=== PATIENT | female | born 1990 | race Hispanic/Latino ===

== ENCOUNTER 2018-10-24 18:28 | Emergency (ER) | payer SELFPAY ==
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
[2018-10-24] MEDS ORDERED: METOCLOPRAMIDE 10 MG/2mL INJ ONE (20:01)
[2018-10-24] MEDS ORDERED: DEXAMETHASONE 4 MG/ML VIAL ONE (20:01)
[2018-10-24] MEDS ORDERED: NA CHLORIDE 0.9% 1,000 ML ONE (20:02)
[2018-10-24] MEDS ORDERED: ONDANSETRON 4 MG/2 ML VIAL ONE (20:02)
[2018-10-24 20:55] LABS: Urine Blood NEGATIVE (NEG); Urine Glucose NEGATIVE (NEG); Urine Protein NEGATIVE (NEG)
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
== END 2018-10-24 22:57 | disposition home or self-care (01) ==
LOC: ER 18:28
DX: S09.90XA Unspecified injury of head, initial encounter (principal); S06.0X9A Concussion with loss of consciousness of unspecified duration, initial encounter; W18.30XA Fall on same level, unspecified, initial encounter
CPT/HCPCS: 70450; 81003; 81025; 96361; 96374; 96375; 99284; J2405; J2765; J7030

== ENCOUNTER 2020-02-11 08:49 | Emergency (ER) | payer SELFPAY ==
[2020-02-11] MEDS ORDERED: FAMOTIDINE 20 MG/2 ML VIAL IV ONE (09:37)
[2020-02-11] MEDS ORDERED: METHYLPREDNISOLONE 125 MG INJ ONE (09:37)
[2020-02-11] MEDS ORDERED: CEFAZOLIN/SWI 1gm 1 GM/10 ML SYR ONE (09:37)
[2020-02-11] MEDS ORDERED: hydrOXYzine HCL 25 MG TAB ONE (09:37)
[2020-02-11 09:59] LABS: Absolute Lymphocytes (CBC) 1.7 K/uL (0.7-4.9); Basophils % 0.4 % (0-1.3); Lymphocytes % 25.8 % (15.3-44.8); MPV 8.9 fL (7.6-11.3); RBC Red Blood Cell Count 4.42 M/uL (3.86-4.86)
[2020-02-11 10:09] LABS: BUN Blood Urea Nitrogen 10 mg/dL (7-18); Bicarbonate 25 mmol/L (21-32); Glucose Level 104 mg/dL (74-106); Potassium 3.7 mmol/L (3.5-5.1); Sodium Level 142 mmol/L (136-145)
--- NOTE | 2020-02-11 11:14 | EDPHYS ---
Physician Documentation [facility] Name: Aruna Hsu Age: 29 yrs Sex: Female : 1990 Arrival Date: 02/11/2020 Time: 08:51 Bed 19 Private MD: ED Physician Mushtaq Hills HPI: 02/10 09:25 This 29 yrs old Female presents to ER via Ambulatory with complaints of Sore kdr Throat, Facial Swelling, Rash. 09:26 The patient started with a mild rash to the right side of the base of her neck. It kdr subsequently spread around to the left side of her neck as well. It is itchy but otherwise not bothersome. She also in the last two days has noticed swelling and tightness on the left side of her face that began around and under her ear and now involves the left side of her face. She has had a similar episode about seven years ago and was seen at [facility] - states that she had some sort of infection. Onset: The symptoms/episode began/occurred gradually, 1 week(s) ago. Severity of symptoms: At their worst the symptoms were mild just prior to arrival, in the emergency department the symptoms are unchanged. The patient has experienced a previous episode. The patient has not recently seen a physician. SHROUD LINE TIER: 09:01 LMP 02/11/2020 tw2 Historical: - Allergies: 09: NKA; tw2 - Home Meds: : None [Active]; tw2 - PMHx: 09: None; tw2 - PSHx: 09: None; tw2 - Immunization history:: Adult Immunizations. - Social history:: Smoking status: . ROS: 09:26 Constitutional: Negative for fever, chills, and weight loss, Eyes: Negative for injury, kdr pain, redness, and discharge, Cardiovascular: Negative for chest pain, palpitations, and edema, Respiratory: Negative for shortness of breath, cough, wheezing, and pleuritic chest pain, Abdomen/GI: Negative for abdominal pain, nausea, vomiting, diarrhea, and constipation, Back: Negative for injury and pain. 09:26 ENT: Positive for Swelling to left face. Exam: :26 Constitutional: This is a well developed, well nourished patient who is awake, alert, kdr and in no acute distress. Eyes: Pupils equal round and reactive to light, extra-ocular motions intact. Lids and lashes normal. Conjunctiva and sclera are non-icteric and not injected. Cornea within normal limits. Periorbital areas with no swelling, redness, or edema. Chest/axilla: Normal chest wall appearance and motion. Nontender with no deformity. No lesions are appreciated. Cardiovascular: Regular rate and rhythm with a normal S1 and S2. No gallops, murmurs, or rubs. Normal PMI, no JVD. No pulse deficits. 09:26 Head/face: Noted is swelling, that is mild, of the left ear, left zygomatic area, left cheek and left mandible. Vital Signs: 08:58 BP 144 / 88; Pulse 65; Resp 18; Temp 98.6(TE); Pulse Ox 100% on R/A; Weight 70.31 kg tw2 (R); Height 5 ft. 2 in. (157.48 cm); Pain 0/10; 10:00 BP 121 / 79; Pulse 61; Resp 16; Pulse Ox 100% ; rb1 10:42 BP 129 / 82; Pulse 60; Resp 17; Pulse Ox 100% ; rb1 11:38 BP 119 / 82; Pulse 63; Resp 17; Pulse Ox 99% on R/A; rb1 08:58 Body Mass Index 28.35 (70.31 kg, 157.48 cm) tw2 MDM: 09:26 Data reviewed: vital signs, nurses notes, lab test result(s). Counseling: I had a kdr detailed discussion with the patient and/or guardian regarding: the historical points, exam findings, and any diagnostic results supporting the discharge/admit diagnosis, lab results, the need for outpatient follow up. 11:06 ED course: The patient is feeling better and the swelling has begun to recede. She ws kdr happy with the care provided and the plan for discharge and follow-up. 11:13 Patient medically screened. kdr 02/10 09:24 Order name: CBC with Diff; Complete Time: 10:36 kdr 02/10 09:24 Order name: Chem 7; Complete Time: 10:36 kdr 02/10 09:24 Order name: Blood Culture Adult (2) kdr 02/10 09:33 Order name: IV Start; Complete Time: 09:45 tw2 Administered Medications: 09:43 Drug: Atarax 25 mg Route: PO; rb1 10:22 Follow up: Response: No adverse reaction rb1 09:47 Drug: Ancef 1 grams Route: IVPB; Site: right antecubital; rb1 10:00 Follow up: Response: No adverse reaction; IV Status: Completed infusion rb1 09:47 Drug: SOLU-Medrol 125 mg Route: IVP; Site: right antecubital; rb1 10:00 Follow up: Response: No adverse reaction rb1 09:48 Drug: Pepcid 20 mg Route: IVP; Site: right antecubital; rb1 10:00 Follow up: Response: No adverse reaction rb1 Disposition: 02/11/20 11:13 Discharged to Home. Impression: Cellulitis of face, Acute allergic reaction/Rash. - Condition is Stable. - Discharge Instructions: Cellulitis, Adult, [id number]. - Prescriptions for Augmentin 500- 125 mg Oral Tablet - take 1 tablet by ORAL route every 8 hours for 10 days; 30 tablet. Medrol (Jesus) 4 mg Oral Tablets, Dose Pack - take 1 tablet by ORAL route as directed - follow package instructions; 1 packet. - Medication Reconciliation Form, Thank You Letter, Antibiotic Education, Work release form form. - Follow up: Private Physician; When: 2 - 3 days; Reason: If symptoms return, Further diagnostic work-up, Recheck today's complaints, Continuance of care, Re-evaluation by your physician. - Problem is new. - Symptoms have improved. Signatures: Dispatcher [employer] EDMS Mushtaq Hills MD MD kdr Barber, Rebecca, RN RN rb1 Mindy Valdez RN RN tw2 Corrections: (The following items were deleted from the chart) 11:41 11:13 02/11/2020 11:13 Discharged to Home. Impression: Cellulitis of face; Acute rb1 allergic reaction/Rash. Condition is Stable. Forms are Work release form, Medication Reconciliation Form, Thank You Letter, Antibiotic Education, Prescription Opioid Use. Follow up: Private Physician; When: 2 - 3 days; Reason: If symptoms return, Further diagnostic work-up, Recheck today's complaints, Continuance of care, Re-evaluation by your physician. Problem is new. Symptoms have improved. kdr
--- NOTE | 2020-02-11 11:14 | ER ---
Nurse's Notes [facility] Name: Aruna Hsu Age: 29 yrs Sex: Female : 1990 Arrival Date: 02/11/2020 Time: 08:51 Bed 19 Private MD: Diagnosis: Cellulitis of face;Acute allergic reaction/Rash Presentation: 02/10 08:58 Chief complaint: Patient states: i have had this rash on my neck for a week now, and tw2 its getting worse, when i woke up today my left side of my jaw hurts and it feels swollen, and i feel like i am short of breath and this morning i woke up with sweats and chills. Coronavirus screen: Patient denies a cough. Patient reports shortness of breath or difficulty breathing. Patient denies measured and/or subjective temperature greater than 100.4F prior to today's visit. Patient denies travel on a cruise ship or to a country the [facility] currently lists as an affected area. Patient denies contact with known and/or suspected case of COVID-19. Ebola Screen: Patient denies travel to an Ebola-affected area in the 21 days before illness onset. Initial Sepsis Screen: Does the patient meet any 2 criteria? No. Patient's initial sepsis screen is negative. Does the patient have a suspected source of infection? No. Patient's initial sepsis screen is negative. Risk Assessment: Do you want to hurt yourself or someone else? Patient reports no desire to harm self or others. Onset of symptoms was February 11, 2020. 08:58 Method Of Arrival: Ambulatory tw2 08:58 Acuity: JOE 4 tw2 Triage Assessment: 08:59 General: Appears in no apparent distress. Behavior is calm, cooperative, appropriate tw2 for age. Pain: Denies pain. EENT: Reports it just feels like an ache, . Derm: Reports i have had shingles before and it feels similar but it itches more. 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 - Social history:: Smoking status: . Screenin:11 Abuse screen: Denies threats or abuse. Nutritional screening: No deficits noted. tw2 Tuberculosis screening: No symptoms or risk factors identified. Fall Risk None identified. Assessment: 09:01 Respiratory: Airway is patent Respiratory effort is even, unlabored. tw2 10:00 Reassessment: Patient appears in no apparent distress at this time. No changes from rb1 previously documented assessment. 10:45 Reassessment: Patient appears in no apparent distress at this time. Patient and/or rb1 family updated on plan of care and expected duration. Pain level reassessed. Patient is alert, oriented x 3, equal unlabored respirations, skin warm/dry/pink. 11:38 Reassessment: Patient appears in no apparent distress at this time. No changes from rb1 previously documented assessment. Vital Signs: 08:58 BP 144 / 88; Pulse 65; Resp 18; Temp 98.6(TE); Pulse Ox 100% on R/A; Weight 70.31 kg tw2 (R); Height 5 ft. 2 in. (157.48 cm); Pain 0/10; 10:00 BP 121 / 79; Pulse 61; Resp 16; Pulse Ox 100% ; rb1 10:42 BP 129 / 82; Pulse 60; Resp 17; Pulse Ox 100% ; rb1 11:38 BP 119 / 82; Pulse 63; Resp 17; Pulse Ox 99% on R/A; rb1 08:58 Body Mass Index 28.35 (70.31 kg, 157.48 cm) tw2 ED Course: 08:51 Patient arrived in ED. as 08:59 Triage completed. tw2 08:59 Arm band placed on. tw2 09:01 Bed in low position. Call light in reach. tw2 09:12 Mushtaq Hills MD is Attending Physician. kdr 09:12 Lizy Vargas, JEFRY is Primary Nurse. rb1 09:35 Inserted saline lock: 20 gauge in right antecubital area, using aseptic technique. tw2 Blood collected. 09:45 Chem 7 Sent. tw2 09:45 CBC with Diff Sent. tw2 10:46 Warm blanket given. rb1 11:40 No provider procedures requiring assistance completed. IV discontinued, intact, rb1 bleeding controlled, No redness/swelling at site. Pressure dressing applied. Administered Medications: 09:43 Drug: Atarax 25 mg Route: PO; rb1 10:22 Follow up: Response: No adverse reaction rb1 09:47 Drug: Ancef 1 grams Route: IVPB; Site: right antecubital; rb1 10:00 Follow up: Response: No adverse reaction; IV Status: Completed infusion rb1 09:47 Drug: SOLU-Medrol 125 mg Route: IVP; Site: right antecubital; rb1 10:00 Follow up: Response: No adverse reaction rb1 09:48 Drug: Pepcid 20 mg Route: IVP; Site: right antecubital; rb1 10:00 Follow up: Response: No adverse reaction rb1 Outcome: 11:13 Discharge ordered by . kdr 11:40 Discharged to home ambulatory. rb1 11:40 Condition: stable 11:40 Discharge instructions given to patient, Instructed on discharge instructions, follow up and referral plans. medication usage, Demonstrated understanding of instructions, follow-up care, medications, Prescriptions given X 2. 11:41 Patient left the ED. rb1 Signatures: Mushtaq Hills MD MD kdr Maegan Stroud Rebecca RN RN rb1 Mindy Valdez RN RN tw2 Corrections: (The following items were deleted from the chart) 10:41 10:41 Reassessment: Dr. Mckeon at the pt bedside. rb1 rb1
[2020-02-11 11:49] VITALS: TEMP 98.6
[2020-02-11 11:53] VITALS: BP 119/82; O2SAT 99
== END 2020-02-11 11:41 | disposition home or self-care (01) ==
LOC: ER 08:49
DX: L03.211 Cellulitis of face (principal)
CPT/HCPCS: 36415; 80048; 85025; 87040; 96374; 96375; 99284; J0690; J2930

== ENCOUNTER 2020-09-07 12:34 | Emergency (ER) | payer SELFPAY ==
--- OUTSIDE RECORDS SUMMARY | 2020-09-07 12:47 | XMS REPORT | Continuity of Care Document ---
:1990 Author Organization [facility] t Address [address] [place] [address] Care Team Providers Name Role Phone Marisela Franco MD Attending Clinician Problems This patient has no known problems. Allergies, Adverse Reactions, Alerts This patient has no known allergies or adverse reactions. Medications This patient has no known medications. Procedures This patient has no known procedures. Encounters Start End Encounter Admission Attending Care Care Encounter Source Date/Time Date/Time Type Type Clinicians Facility Department ID 2019-04-03 2019-04-03 Emergency LAURA Franco [id number] 08:21:37 10:14:00 Florian Adler [id number] [place] [id number] [place] [id number] Results This patient has no known results.
--- NOTE | 2020-09-07 14:49 | RAD REPORT ---
EXAM DESCRIPTION: RAD - Ankle Right 3 View - 09/07/2020 2:23 pm CLINICAL HISTORY: Right ankle pain FINDINGS: No fracture or dislocation is seen. Marked soft tissue swelling
--- NOTE | 2020-09-07 15:39 | ER ---
Nurse's Notes [facility] Name: Aruna Hsu Age: 30 yrs Sex: Female : 1990 Arrival Date: 09/07/2020 Time: 12:35 Bed Waiting Private MD: Diagnosis: Sprain of ankle Presentation: 09/07 13:12 Chief complaint: Patient states: right ankle pain/swelling last night after rolling it sv last night after getting off of a trailer. [place] a "pop" after rolling it. Care prior to arrival: None. Trauma event details: Injury occurred in the [facility], Injury occurred: at home. Injury occurred: September 06, 2020. 13:12 Acuity: JOE 4 sv 13:12 Method Of Arrival: Wheelchair sv 13:13 Coronavirus screen: Client denies travel out of the [place] in the last 14 days. At this sv time, the client does not indicate any symptoms associated with coronavirus-19. Ebola Screen: No symptoms or risks identified at this time. Risk Assessment: Do you want to hurt yourself or someone else? Patient reports no desire to harm self or others. Onset of symptoms was September 06, 2020. 13:13 Initial Sepsis Screen: Does the patient meet any 2 criteria? No. Patient's initial sv sepsis screen is negative. Does the patient have a suspected source of infection? No. Patient's initial sepsis screen is negative. Triage Assessment: 13:12 General: Appears in no apparent distress. uncomfortable, well developed, Behavior is sv calm, cooperative, appropriate for age. Pain: Complains of pain in right lateral malleolus. Neuro: Level of Consciousness is awake, alert, obeys commands, Oriented to person, place, time, situation, Moves all extremities. Respiratory: Respiratory effort is even, unlabored, Respiratory pattern is regular, symmetrical. Musculoskeletal: Swelling present in right lateral malleolus. 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 Denies injuries from another. Nutritional sv screening: No deficits noted. Tuberculosis screening: No symptoms or risk factors identified. Fall Risk None identified. Assessment: 13:17 Reassessment: Received VO for right ankle xray per Mellissa SAUNDERS. sv Vital Signs: 13:13 Weight 77.11 kg; Height 5 ft. 2 in. (157.48 cm); sv 13:14 BP 117 / 71; Pulse 80; Resp 16; Temp 98.4; Pulse Ox 100% ; Pain 9/10; sv 13:13 Body Mass Index 31.09 (77.11 kg, 157.48 cm) sv Jaylin Coma Score: 13:14 Eye Response: spontaneous(4). Verbal Response: oriented(5). Motor Response: obeys sv commands(6). Total: 15. Trauma Score (Adult): 13:14 Eye Response: spontaneous(1); Verbal Response: oriented(1); Motor Response: obeys sv commands(2); Systolic BP: > 89 mm Hg(4); Respiratory Rate: 10 to 29 per min(4); Jaylin Score: 15; Trauma Score: 12 ED Course: 12:35 Patient arrived in ED. rg4 13:13 Triage completed. sv 13:14 Arm band placed on. sv 13:21 Mellissa Restrepo FNP-C is PHCP. snw 13:21 Moisés Altamirano MD is Attending Physician. snw 14:23 Ankle Right 3 View XRAY In Process Unspecified. EDMS 15:37 Alyssa Ham, JEFRY is Primary Nurse. sv 15:37 Nurse Practitioner and/or Physician Flying Squad Salesperson to see patient. sv 15:38 Danile White MD is Referral Physician. snw 15:42 Patient has correct armband on for positive identification. sv 15:54 No provider procedures requiring assistance completed. Patient did not have IV access sv during this emergency room visit. Administered Medications: 15:42 Drug: Ketorolac 60 mg Route: IM; Site: right gluteus; sv 15:54 Follow up: Response: No adverse reaction sv Intake: 13:14 PO: 0ml; Total: 0ml. sv Output: 13:14 Urine: 0ml; Total: 0ml. sv Outcome: 15:38 Discharge ordered by . snw 15:54 Discharged to home via wheelchair, with crutches, with walking boot sv 15:54 Condition: stable 15:54 Discharge instructions given to patient, Instructed on discharge instructions, follow up and referral plans. medication usage, walking boot application Demonstrated understanding of instructions, follow-up care, medications, walking boot application Prescriptions given X 2. 15:55 Patient left the ED. sv Signatures: Dispatcher [employer] EDAlyssa Lewis RN RN Mellissa Hoang, REGULATORY AFFAIRS ASSISTANT-C REGULATORY AFFAIRS ASSISTANT-Meg Cruz rg4 Corrections: (The following items were deleted from the chart) 13:17 13:14 Pulse 80bpm; Resp 16bpm; Pulse Ox 100%; Temp 98.4F; Pain 9/10; sv sv
--- NOTE | 2020-09-07 15:39 | EDPHYS ---
Physician Documentation [facility] Name: Aruna Hsu Age: 30 yrs Sex: Female : 1990 Arrival Date: 09/07/2020 Time: 12:35 Bed Waiting Private MD: ED Physician Moisés Altamirano HPI: 09/07 15:44 This 30 yrs old Female presents to ER via Wheelchair with complaints of Fall snw Injury, Ankle Injury. 15:44 Details of fall: The patient fell from an upright position, while jumping, down from snw trailer. Onset: The symptoms/episode began/occurred suddenly, yesterday. Associated injuries: The patient sustained right ankle, contusion, decreased range of motion, painful injury, swelling. Severity of symptoms: At their worst the symptoms were severe. The patient has experienced a previous episode, approximately 3 days ago, but today's symptoms are worse. The patient has not recently seen a physician. pt jumped down from trailer and felt a pop at her right ankle. Wrapped during the pm, awoke at 0300 and stepped on foot, severe pain and felt ankle might be broken. 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 sv Historical: - Allergies: 13:14 NKA; sv - PMHx: 13:14 None; sv - PSHx: 13:14 None; sv ROS: 15:43 Constitutional: Negative for fever, chills, and weight loss, Eyes: Negative for injury, snw pain, redness, and discharge, ENT: Negative for injury, pain, and discharge, Neck: Negative for injury, pain, and swelling, Cardiovascular: Negative for chest pain, palpitations, and edema, Respiratory: Negative for shortness of breath, cough, wheezing, and pleuritic chest pain, Abdomen/GI: Negative for abdominal pain, nausea, vomiting, diarrhea, and constipation, Back: Negative for injury and pain, : Negative for injury, bleeding, discharge, and swelling, Skin: Negative for injury, rash, and discoloration, Neuro: Negative for headache, weakness, numbness, tingling, and seizure, Psych: Negative for depression, anxiety, suicide ideation, homicidal ideation, and hallucinations. 15:43 MS/extremity: Positive for injury or acute deformity, decreased range of motion, pain, swelling, of the right lateral malleolus, felt pop when stepping down from trailer. Exam: 15:41 Constitutional: This is a well developed, well nourished patient who is awake, alert, snw and in no acute distress. Head/Face: Normocephalic, atraumatic. Eyes: Pupils equal round and reactive to light, extra-ocular motions intact. Lids and lashes normal. Conjunctiva and sclera are non-icteric and not injected. Cornea within normal limits. Periorbital areas with no swelling, redness, or edema. ENT: Nares patent. No nasal discharge, no septal abnormalities noted. Tympanic membranes are normal and external auditory canals are clear. Oropharynx with no redness, swelling, or masses, exudates, or evidence of obstruction, uvula midline. Mucous membranes moist. Neck: Trachea midline, no thyromegaly or masses palpated, and no cervical lymphadenopathy. Supple, full range of motion without nuchal rigidity, or vertebral point tenderness. No Meningismus. Chest/axilla: Normal chest wall appearance and motion. Nontender with no deformity. No lesions are appreciated. Cardiovascular: Regular rate and rhythm with a normal S1 and S2. No gallops, murmurs, or rubs. Normal PMI, no JVD. No pulse deficits. Respiratory: Lungs have equal breath sounds bilaterally, clear to auscultation and percussion. No rales, rhonchi or wheezes noted. No increased work of breathing, no retractions or nasal flaring. Abdomen/GI: Soft, non-tender, with normal bowel sounds. No distension or tympany. No guarding or rebound. No evidence of tenderness throughout. Back: No spinal tenderness. No costovertebral tenderness. Full range of motion. Skin: Warm, dry with normal turgor. Normal color with no rashes, no lesions, and no evidence of cellulitis. Neuro: Awake and alert, GCS 15, oriented to person, place, time, and situation. Cranial nerves II-XII grossly intact. Motor strength 5/5 in all extremities. Sensory grossly intact. Cerebellar exam normal. Normal gait. Psych: Awake, alert, with orientation to person, place and time. Behavior, mood, and affect are within normal limits. 15:41 Musculoskeletal/extremity: ROM: limited active range of motion due to pain, limited passive range of motion due to pain, in the right lateral malleolus, Circulation is intact in all extremities. Sensation intact. + edema, + tenderness Vital Signs: 13:13 Weight 77.11 kg; Height 5 ft. 2 in. (157.48 cm); sv 13:14 BP 117 / 71; Pulse 80; Resp 16; Temp 98.4; Pulse Ox 100% ; Pain 9/10; sv 13:13 Body Mass Index 31.09 (77.11 kg, 157.48 cm) sv [place] Coma Score: 13:14 Eye Response: spontaneous(4). Verbal Response: oriented(5). Motor Response: obeys sv commands(6). Total: 15. Trauma Score (Adult): 13:14 Eye Response: spontaneous(1); Verbal Response: oriented(1); Motor Response: obeys sv commands(2); Systolic BP: > 89 mm Hg(4); Respiratory Rate: 10 to 29 per min(4); Jaylin Score: 15; Trauma Score: 12 MDM: 15:38 Patient medically screened. snw 15:43 Data reviewed: vital signs, nurses notes. Data interpreted: Pulse oximetry: on room air snw is 100 %. Interpretation: normal. Counseling: I had a detailed discussion with the patient and/or guardian regarding: the historical points, exam findings, and any diagnostic results supporting the discharge/admit diagnosis, radiology results, the need for outpatient follow up, to return to the emergency department if symptoms worsen or persist or if there are any questions or concerns that arise at home. Special discussion: Based on the history and exam findings, there is no indication for further emergent testing or inpatient evaluation. I discussed with the patient/guardian the need to see the orthopedic surgeon for further evaluation of the symptoms. I discussed with the patient/guardian the need to see the primary care provider for further evaluation of the symptoms. 09/07 13:17 Order name: Ankle Right 3 View XRAY; Complete Time: 15:10 sv 09/07 14:10 Order name: Walking boot; Complete Time: 15:46 snw Administered Medications: 15:42 Drug: Ketorolac 60 mg Route: IM; Site: right gluteus; sv 15:54 Follow up: Response: No adverse reaction sv Disposition: 16:33 Co-signature as Attending Physician, Moisés Altamirano MD I agree with the assessment and christin plan of care. Disposition: 09/07/20 15:38 Discharged to Home. Impression: Sprain of ankle. - Condition is Stable. - Discharge Instructions: Elastic Bandage and RICE, Ankle Sprain, Crutch Use, Ankle Pain, Cryotherapy, Heat Therapy, Walking Boot. - Prescriptions for Mobic 7.5 mg Oral Tablet - take 1 tablet by ORAL route once daily take with food; 20 tablet. orphenadrine citrate 100 mg Oral Tablet Sustained Release - take 1 tablet by ORAL route 2 times per day As needed; 20 tablet. - Work release form, Medication Reconciliation Form, Thank You Letter, Antibiotic Education, Prescription Opioid Use form. - Follow up: Emergency Department; When: As needed; Reason: Worsening of condition. Follow up: Daniel White MD; When: 2 - 3 days; Reason: Recheck today's complaints, Continuance of care. Signatures: Dispatcher [employer] Alyssa Salgado RN RN sv Anderson, Corey, MD MD cha Waters, Shelly, RIBBON CUTTER-C RIBBON CUTTER-Csnw Corrections: (The following items were deleted from the chart) 15:55 15:38 09/07/2020 15:38 Discharged to Home. Impression: Sprain of ankle. Condition is sv Stable. Forms are Medication Reconciliation Form, Thank You Letter, Antibiotic Education, Prescription Opioid Use. Follow up: Emergency Department; When: As needed; Reason: Worsening of condition. Follow up: Daniel White; When: 2 - 3 days; Reason: Recheck today's complaints, Continuance of care. snw
[2020-09-07] MEDS ORDERED: KETOROLAC 30 MG/ML INJ ONE (15:50)
[2020-09-07 16:06] VITALS: BP 117/71; TEMP 98.4; O2SAT 100
== END 2020-09-07 15:55 | disposition home or self-care (01) ==
LOC: ER 12:34
DX: S93.401A Sprain of unspecified ligament of right ankle, initial encounter (principal); X58.XXXA Exposure to other specified factors, initial encounter; Y93.01 Activity, walking, marching and hiking; Y92.89 Other specified places as the place of occurrence of the external cause
CPT/HCPCS: 96372; 99283

== ENCOUNTER 2020-12-15 08:15 | Emergency (ER) | payer SELFPAY ==
--- OUTSIDE RECORDS SUMMARY | 2020-12-15 08:17 | XMS REPORT | Continuity of Care Document ---
:1990 Author Organization [facility] t Address [address] [place] [address] Care Team Providers Name Role Phone Marisela [...] Department ID 2019-04-03 2019-04-03 Emergency LAURA Franco [id number] 08:21:37 10:14:00 Florian Adler [id number] [place] [id number] [place] [phone] [id number] Results This patient has no known results.
--- NOTE | 2020-12-15 09:18 | RAD REPORT ---
EXAM DESCRIPTION: RAD - Chest Single View - 12/15/2020 9:03 am CLINICAL HISTORY: Chest pain;Cough Chest pain. COMPARISON: No comparisons FINDINGS: Portable technique limits examination quality. The lungs are grossly clear. The heart is normal in size. No displaced fractures. IMPRESSION: No acute intrathoracic process suspected.
[2020-12-15 09:41] LABS: SARS-COV-2 RT PCR NEGATIVE (NEGATIVE)
--- NOTE | 2020-12-15 09:50 | EDPHYS ---
Physician Documentation [facility] Name: Aruna Hsu Age: 30 yrs Sex: Female : 1990 Arrival Date: 12/15/2020 Time: 08:15 Bed 20 Private MD: ED Physician Mushtaq Hills HPI: 12/15 14:42 This 30 yrs old Female presents to ER via Ambulatory with complaints of Cough, kdr Chest Tightness. 14:42 The patient or guardian reports airway noise, cough, that is intermittent, described as kdr moderate, with no sputum. Onset: The symptoms/episode began/occurred gradually, 1 week(s) ago. 14:59 Severity of symptoms: At their worst the symptoms were mild, in the emergency kdr department the symptoms are unchanged. Modifying factors: The symptoms are alleviated by nothing, the symptoms are aggravated by nothing. Associated signs and symptoms: Pertinent positives: chest pain, with cough, with movement, with breathing, Pertinent negatives: fever, nausea, rhinorrhea, sore throat, vomiting. The patient has not experienced similar symptoms in the past. The patient has not recently seen a physician, She did get her fist vaccine shot about a week ago before her s/s started. 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 - Social history:: Smoking status: Patient denies any tobacco usage or history of. ROS: 14:59 Constitutional: Negative for fever, chills, and weight loss, Eyes: Negative for injury, kdr pain, redness, and discharge, Neck: Negative for injury, pain, and swelling, Cardiovascular: Negative for chest pain, palpitations, and edema, Back: Negative for injury and pain, : Negative for injury, bleeding, discharge, and swelling, MS/Extremity: Negative for injury and deformity, Skin: Negative for injury, rash, and discoloration, Neuro: Negative for headache, weakness, numbness, tingling, and seizure activity. Psych: Negative for depression, anxiety, suicide ideation, homicidal ideation, and hallucinations, Allergy/Immunology: Negative for hives, rash, and allergies, Endocrine: Negative for neck swelling, polydipsia, polyuria, polyphagia, and marked weight changes, Hematologic/Lymphatic: Negative for swollen nodes, abnormal bleeding, and unusual bruising. 14:59 Respiratory: Positive for cough, with no reported sputum, shortness of breath, Negative for dyspnea on exertion, hemoptysis, orthopnea, pleurisy, sputum production, wheezing. 14:59 Abdomen/GI: Positive for nausea, Negative for vomiting, diarrhea, constipation, abdominal cramps, abdominal distension, black/tarry stool, rectal pain, rectal bleeding, bowel incontinence. Exam: 14:59 Constitutional: This is a well developed, well nourished patient who is awake, alert, kdr and in no acute distress. Head/Face: Normocephalic, atraumatic. Eyes: Pupils equal round and reactive to light, extra-ocular motions intact. Lids and lashes normal. Conjunctiva and sclera are non-icteric and not injected. Cornea within normal limits. Periorbital areas with no swelling, redness, or edema. Neck: Trachea midline, no thyromegaly or masses palpated, and no cervical lymphadenopathy. Supple, full range of motion without nuchal rigidity, or vertebral point tenderness. No Meningismus. Chest/axilla: Normal chest wall appearance and motion. Nontender with no deformity. No lesions are appreciated. Cardiovascular: Regular rate and rhythm with a normal S1 and S2. No gallops, murmurs, or rubs. Normal PMI, no JVD. No pulse deficits. Abdomen/GI: Soft, non-tender, with normal bowel sounds. No distension or tympany. No guarding or rebound. No evidence of tenderness throughout. Back: No spinal tenderness. No costovertebral tenderness. Full range of motion. Skin: Warm, dry with normal turgor. Normal color with no rashes, no lesions, and no evidence of cellulitis. MS/ Extremity: Pulses equal, no cyanosis. Neurovascular intact. Full, normal range of motion. Neuro: Awake and alert, GCS 15, oriented to person, place, time, and situation. Cranial nerves II-XII grossly intact. Motor strength 5/5 in all extremities. Sensory grossly intact. Cerebellar exam normal. Normal gait. Psych: Awake, alert, with orientation to person, place and time. Behavior, mood, and affect are within normal limits. 14:59 Respiratory: the patient does not display signs of respiratory distress, Respirations: shallow respirations, Breath sounds: are clear throughout. Vital Signs: 08:18 BP 154 / 85; Pulse 99; Resp 16 S; Temp 99.1(O); Pulse Ox 99% on R/A; Weight 81.65 kg aa5 (R); Height 5 ft. 2 in. (157.48 cm) (R); 09:00 BP 116 / 68; Pulse 98; Resp 15; Pulse Ox 99% ; bp 09:59 BP 112 / 71; Pulse 81; Resp 17; Temp 98.9; Pulse Ox 97% ; bp 08:18 Body Mass Index 32.92 (81.65 kg, 157.48 cm) aa5 MDM: 09:50 Patient medically screened. kdr 14:59 Data reviewed: vital signs, nurses notes, lab test result(s), radiologic studies. kdr Counseling: I had a detailed discussion with the patient and/or guardian regarding: the historical points, exam findings, and any diagnostic results supporting the discharge/admit diagnosis, lab results, radiology results, the need for outpatient follow up. 12/15 08:26 Order name: CXR XRAY; Complete Time: 09:49 kdr 12/15 09:42 Order name: COVID-19/FLU A+B; Complete Time: 09:49 EDMS Administered Medications: No medications were administered Disposition: 12/15/20 09:50 Discharged to Home. Impression: Cough, Chest pain on breathing, Chest pain, unspecified. - Condition is Stable. - Discharge Instructions: Acute Bronchitis, [id number], Nonspecific Chest Pain, [id number], Cough, Adult, Txam-gr-Dhsh. - Prescriptions for Tessalon Perles 100 mg Oral Capsule - take 1 capsule by ORAL route every 8 hours As needed; 15 capsule. Tramadol 50 mg Oral Tablet - take 1 tablet by ORAL route every 8 hours as needed; 12 tablet. Albuterol Sulfate 90 mcg/actuation - inhale 1-2 puff by INHALATION route every 4-6 hours; 1 Inhaler. - Work release form, Medication Reconciliation Form, Thank You Letter form. - Follow up: Private Physician; When: 2 - 3 days; Reason: If symptoms return, Further diagnostic work-up, Recheck today's complaints, Continuance of care, Re-evaluation by your physician. - Problem is new. - Symptoms have improved. Signatures: Dispatcher [employer] EDCA Mushtaq Hills MD MD kdr Alena Oh, RN RN aa5 Ashok Camacho, RN RN bp Corrections: (The following items were deleted from the chart) 08:57 08:26 Influenza Screen (A \T\ B)+BA.LAB.BRZ ordered. EDCA EDMS 08:57 08:26 CORONAVIRUS+MR.LAB.BRZ ordered. EDCA EDMS 10:06 09:50 12/15/2020 09:50 Discharged to Home. Impression: Cough; Chest pain on breathing; bp Chest pain, unspecified. Condition is Stable. Forms are Medication Reconciliation Form, Thank You Letter, Antibiotic Education, Prescription Opioid Use. Follow up: Private Physician; When: 2 - 3 days; Reason: If symptoms return, Further diagnostic work-up, Recheck today's complaints, Continuance of care, Re-evaluation by your physician. Problem is new. Symptoms have improved. kdr
--- NOTE | 2020-12-15 09:50 | ER ---
Nurse's Notes [facility] Name: Aruna Hsu Age: 30 yrs Sex: Female : 1990 Arrival Date: 12/15/2020 Time: 08:15 Bed 20 Private MD: Diagnosis: Cough;Chest pain on breathing;Chest pain, unspecified Presentation: 12/15 08:18 Chief complaint: Patient states: cough x 1 week ago, chest pain with cough, and hoarse aa5 voice x 1 week ago. Pt states "I received the COVID-19 vaccine last Monday". Pt denies N/V/D. Reports fever. Ebola Screen: Patient negative for fever greater than or equal to 101.5 degrees Fahrenheit, and additional compatible Ebola Virus Disease symptoms. Initial Sepsis Screen: Does the patient meet any 2 criteria? HR > 90 bpm. Does the patient have a suspected source of infection? Yes:. Risk Assessment: Do you want to hurt yourself or someone else? Patient reports no desire to harm self or others. 08:18 Acuity: JOE 4 aa5 08:18 Method Of Arrival: Ambulatory aa5 08:18 Coronavirus screen: Client presents with at least one sign or symptom that may indicate aa5 coronavirus-19. Standard/surgical mask placed on the client. Provider contacted for isolation considerations. Onset of symptoms was December 2020. Triage Assessment: 08:30 General: Appears distressed, uncomfortable, obese, Behavior is cooperative, appropriate bp for age, anxious. Pain: Denies pain. EENT: No deficits noted. Neuro: No deficits noted. Cardiovascular: No deficits noted. Respiratory: Reports cough that is. GI: No signs and/or symptoms were reported involving the gastrointestinal system. : No signs and/or symptoms were reported regarding the genitourinary system. Derm: No deficits noted. Musculoskeletal: No deficits noted. 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 - Social history:: Smoking status: Patient denies any tobacco usage or history of. Screenin:30 Abuse screen: Denies threats or abuse. Denies injuries from another. Nutritional bp screening: No deficits noted. Tuberculosis screening: No symptoms or risk factors identified. Fall Risk None identified. Assessment: 08:30 General: SEE TRIAGE NOTE. bp 10:04 Reassessment: PT D/C HOME AMBULATORY, DX WITH VIRAL URI. bp Vital Signs: 08:18 BP 154 / 85; Pulse 99; Resp 16 S; Temp 99.1(O); Pulse Ox 99% on R/A; Weight 81.65 kg aa5 (R); Height 5 ft. 2 in. (157.48 cm) (R); 09:00 BP 116 / 68; Pulse 98; Resp 15; Pulse Ox 99% ; bp 09:59 BP 112 / 71; Pulse 81; Resp 17; Temp 98.9; Pulse Ox 97% ; bp 08:18 Body Mass Index 32.92 (81.65 kg, 157.48 cm) aa ED Course: 08:15 Patient arrived in ED. am2 08:18 Mushtaq Hills MD is Attending Physician. kdr 08:18 Arm band placed on Patient placed in an exam room, on a stretcher. aa5 08:24 Ashok Camacho, RN is Primary Nurse. bp 08:29 Triage completed. aa5 08:30 Patient has correct armband on for positive identification. Bed in low position. Call bp light in reach. Side rails up X2. quality assurance monitor final on. Pulse ox on. NIBP on. 09:03 CXR XRAY In Process Unspecified. EDMS 10:00 No provider procedures requiring assistance completed. Patient did not have IV access bp during this emergency room visit. Patient maintains SpO2 saturation greater than 95% on room air. Administered Medications: No medications were administered Outcome: 09:50 Discharge ordered by . kdr 10:00 Discharged to home ambulatory. bp 10:00 Condition: stable 10:00 Discharge instructions given to patient, Instructed on discharge instructions, follow up and referral plans. medication usage, Demonstrated understanding of instructions, follow-up care, medications, Prescriptions given X 3. 10:06 Patient left the ED. bp Signatures: Dispatcher [employer] EDTN Mushtaq Hills MD MD kdr Alena Oh RN RN aa5 Nicolasa Stapleton am2 Ashok Camacho, RN RN bp
[2020-12-15 10:13] VITALS: BP 112/71; TEMP 98.9; O2SAT 97
== END 2020-12-15 10:06 | disposition home or self-care (01) ==
LOC: ER 08:15
DX: R05 Cough (principal); R07.9 Chest pain, unspecified; R07.1 Chest pain on breathing; Z20.822 Contact with and (suspected) exposure to COVID-19
CPT/HCPCS: 0240U; 71045; 99284

== ENCOUNTER 2022-02-28 15:16 | Emergency (ER) | payer SELFPAY ==
--- OUTSIDE RECORDS SUMMARY | 2022-02-28 15:18 | XMS REPORT | Continuity of Care Document ---
:1990 Author Organization [facility] t Address [address] [place] [address] Care Team Providers Name Role Phone JULISSA Attending Clinician Unavailable Marisela Franco MD Attending Clinician Problems This patient has no known problems. Allergies, Adverse Reactions, Alerts Allergy Allergy Status Severity Reaction(s) Onset Inactive Treating Comm ents Source Name Type Date Date Clinician NO KNOWN Drug Active Univers ALLERGIE Sudheer [facility] Medications This patient has no known medications. Procedures This patient has no known procedures. Encounters Start End Encounter Admission Attending Care Care Encounter Source Date/Time Date/Time Type Type Clinicians Facility Department ID 2020-12-14 2020-12-14 Outpatient R JULISSA [facility] [id number] Univers 11:20:00 11:20:00 BARBARA devi [facility] 2019-04-03 2019-04-03 Emergency Joan [facility] [id number] 08:21:37 10:14:00 Florian Adler [id number] [place] [id number] [place] [id number] Results This patient has no known results.
[2022-02-28] MEDS ORDERED: HYDROCODONE/CHLORPHEN 5 ML/OSYR ONE (15:41)
--- NOTE | 2022-02-28 16:31 | RAD REPORT ---
EXAM DESCRIPTION: RAD - Chest Pa And Lat (2 Views) - 02/28/2022 4:19 pm CLINICAL HISTORY: CHEST PAINleft-side COMPARISON: None TECHNIQUE: Frontal and lateral views of the chest were obtained. FINDINGS: The lungs are clear. Heart size is normal and central vasculature is within normal limit s. No pleural effusion or pneumothorax seen. No acute bony finding noted. No aortic abnormality. No significant change from comparison study. IMPRESSION: No acute cardiopulmonary process.
--- NOTE | 2022-02-28 16:58 | ER ---
Nurse's Notes [facility] Name: Aruna Hsu Age: 31 yrs Sex: Female : 1990 Arrival Date: 02/28/2022 Time: 15:49 Bed 12 Private MD: Diagnosis: Chest pain on breathing-chest wall pain Presentation: 02/28 15:57 Chief complaint: Patient states: pain under left breast x 1 1/2 weeks ago, reports she aa5 had a cough last week. 15:57 Acuity: JOE 4 aa5 15:57 Onset of symptoms was February 2022. aa5 15:57 Coronavirus screen: At this time, the client does not indicate any symptoms associated aa5 with coronavirus-19. Ebola Screen: No symptoms or risks identified at this time. Initial Sepsis Screen: Does the patient meet any 2 criteria? No. Patient's initial sepsis screen is negative. Does the patient have a suspected source of infection? No. Patient's initial sepsis screen is negative. Risk Assessment: Do you want to hurt yourself or someone else? Patient reports no desire to harm self or others. 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 - Social history:: Smoking status: Patient denies any tobacco usage or history of. Vital Signs: 15:58 BP 133 / 95; Pulse 67; Resp 18 S; Temp 98.2(TE); Pulse Ox 100% on R/A; Weight 79.38 kg aa5 (R); Height 5 ft. 2 in. (157.48 cm) (R); 15:58 Body Mass Index 32.01 (79.38 kg, 157.48 cm) aa5 ED Course: 15:49 Patient arrived in ED. mr 15:50 Estrella Sanford FNP-C [facility]. kb 15:50 Mark Mcwilliams MD is Attending Physician. kb 15:57 Triage completed. aa5 15:57 Arm band placed on. aa5 16:21 Chest Pa And Lat (2 Views) XRAY In Process Unspecified. EDMS 17:04 Mireya Wise, RN is Primary Nurse. iw Administered Medications: 17:20 Drug: Ketorolac 30 mg Route: IM; Site: right gluteus; aa5 Outcome: 16:57 Discharge ordered by . kb 18:10 Patient left the ED. iw Signatures: Dispatcher [employer] EDMS Estrella Sanford, GEORGINA RENDON-Joan Spencer mr Mireya Wise, RN RN iw Alena Oh RN RN aa5
--- NOTE | 2022-02-28 16:58 | EDPHYS ---
Physician Documentation [facility] Name: Aruna Hsu Age: 31 yrs Sex: Female : 1990 Arrival Date: 02/28/2022 Time: 15:49 Bed 12 Private MD: ED Physician Mark Mcwilliams HPI: 02/28 17:50 This 31 yrs old Female presents to ER via Ambulatory with complaints of Pain kb under breast. 17:50 The patient or guardian reports chest pain that is located primarily in the anterior kb chest wall, left. The pain does not radiate. Associated signs and symptoms: The patient has no apparent associated signs or symptoms. The chest pain is described as sharp. Duration: The patient or guardian reports a single episode. Modifying factors: The symptoms are alleviated by remaining still, rest, the symptoms are aggravated by deep breath, movement, palpation of area. Severity of pain: At its worst the pain was moderate in the emergency department the pain is unchanged. The patient has not experienced similar symptoms in the past. The patient has not recently seen a physician. Pt reports she has had pain to left chest, below breast for 1-2 weeks. States the pain has been more constant over the last week. Reports she fell 2 weeks ago onto that side while at a wedding, woke up the next day with cough and congestion. States she thought the cough caused the pain, but cough has resolved and pain persists. Pain worse with palpation, movement, and deep breath. 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 - Social history:: Smoking status: Patient denies any tobacco usage or history of. ROS: 17:49 Constitutional: Negative for fever, chills, and weight loss. kb 17:49 Cardiovascular: Positive for chest pain, with cough, with movement, of the left breast. 17:49 All other systems are negative. Exam: 17:49 Constitutional: This is a well developed, well nourished patient who is awake, alert, kb and in no acute distress. Head/Face: Normocephalic, atraumatic. ENT: Moist Mucous membranes Cardiovascular: Regular rate and rhythm with a normal S1 and S2. No gallops, murmurs, or rubs. No pulse deficits. Respiratory: Respirations even and unlabored. No increased work of breathing. Talking in full sentences Abdomen/GI: Soft, non-tender. No distention Skin: Warm, dry with normal turgor. Normal color. MS/ Extremity: Pulses equal, no cyanosis. Neurovascular intact. Full, normal range of motion. Neuro: Awake and alert, GCS 15, oriented to person, place, time, and situation. Moves all extremities. Normal gait. Psych: Awake, alert, with orientation to person, place and time. Behavior, mood, and affect are within normal limits. 17:49 Chest/axilla: Inspection: normal, Palpation: tenderness, that is moderate, of the left breast, that totally reproduces the patient's complaints. Vital Signs: 15:58 BP 133 / 95; Pulse 67; Resp 18 S; Temp 98.2(TE); Pulse Ox 100% on R/A; Weight 79.38 kg aa5 (R); Height 5 ft. 2 in. (157.48 cm) (R); 15:58 Body Mass Index 32.01 (79.38 kg, 157.48 cm) aa5 MDM: 15:58 Patient medically screened. kb 16:39 Data reviewed: vital signs, nurses notes. Data interpreted: Pulse oximetry: on room air kb is 100 %. Interpretation: normal. 17:49 Counseling: I had a detailed discussion with the patient and/or guardian regarding: the kb historical points, exam findings, and any diagnostic results supporting the discharge/admit diagnosis, radiology results, the need for outpatient follow up, a family practitioner, to return to the emergency department if symptoms worsen or persist or if there are any questions or concerns that arise at home. 02/28 15:58 Order name: Chest Pa And Lat (2 Views) XRAY; Complete Time: 16:33 kb Administered Medications: 17:20 Drug: Ketorolac 30 mg Route: IM; Site: right gluteus; aa5 Disposition: 18:31 Co-signature as Attending Physician, Mark Mcwilliams MD. rn Disposition Summary: 02/28/22 16:57 Discharge Ordered Location: Home kb Condition: Stable kb Diagnosis - Chest pain on breathing - chest wall pain kb Followup: kb - With: Emergency Department - When: As needed - Reason: Worsening of condition Followup: kb - With: Private Physician - When: 2 - 3 days - Reason: Recheck today's complaints, Continuance of care, Re-evaluation by your physician Discharge Instructions: - Discharge Summary Sheet kb - Chest Wall Pain, [id number] kb - Pleurisy, [id number]-[id number] kb Forms: - Medication Reconciliation Form kb - Thank You Letter kb - Antibiotic Education kb - Prescription Opioid Use kb Prescriptions: - Cyclobenzaprine 10 mg Oral Tablet - take 1 tablet by ORAL route every 8 hours As needed; 15 tablet; Refills: 0, kb Product Selection Permitted - Diclofenac Sodium 75 mg Oral tablet,delayed release (DR/EC) - take 1 tablet by ORAL route 2 times per day As needed; 30 tablet; Refills: 0, kb Product Selection Permitted Signatures: Dispatcher [employer] Estrella Robles, CINDYC ACCOUNTING MANAGER ASSISTANT CONTROLLER-Mark Banda MD MD rn Calderon, Audri, RN RN aa5
[2022-02-28] MEDS ORDERED: KETOROLAC 30 MG/ML INJ ONE (17:25)
[2022-02-28 19:33] VITALS: BP 133/95; TEMP 98.2; O2SAT 100
== END 2022-02-28 18:10 | disposition home or self-care (01) ==
LOC: ER 15:16
DX: R07.1 Chest pain on breathing (principal); R07.89 Other chest pain
CPT/HCPCS: 71046; 96372; 99283

== ENCOUNTER 2022-05-05 13:21 | Emergency (ER) | payer SELFPAY ==
--- OUTSIDE RECORDS SUMMARY | 2022-05-05 13:24 | XMS REPORT | Continuity of Care Document ---
:1990 Author Organization [facility] t Address [address] [place] [address] Care Team Providers Name Role Phone BARBARA COSTA Attending Clinician Unavailable Joan ZHAO, Florian Antonio Attending Clinician Problems This patient has no known problems. Allergies, Adverse Reactions, Alerts Allergy Allergy Status Severity Reaction(s) Onset Inactive Treating Comm ents Source Name Type Date Date Clinician NO KNOWN Drug Active [facility] ALLERGIE [facility] Medications This patient has no known medications. Procedures This patient has no known procedures. Encounters Start End Encounter Admission Attending Care Care Encounter Source Date/Time Date/Time Type Type Clinicians Facility Department ID 2020-12-14 2020-12-14 Outpatient R JULISSA [facility] [id number] Univers 11:20:00 11:20:00 BARBARA [facility] 2019-04-03 2019-04-03 Emergency Joan [facility] [id number] 08:21:37 10:14:00 Florian Adler [id number] [place] [id number] [place] [id number] Results This patient has no known results.
--- NOTE | 2022-05-05 14:10 | RAD REPORT ---
EXAM DESCRIPTION: RAD - Chest Single View - 05/05/2022 2:03 pm CLINICAL HISTORY: SOB Chest pain. COMPARISON: Chest Pa And Lat (2 Views) dated 02/28/2022; Chest Single View dated 12/15/2020 FINDINGS: Portable technique limits examination quality. The lungs are grossly clear. The heart is normal in size. No displaced fractures. IMPRESSION: No acute intrathoracic process suspected.
[2022-05-05 14:33] LABS: Absolute Lymphocytes (CBC) 2.3 K/uL (0.7-4.9); Hematocrit 35.4 % (36.0-45.0); Lymphocytes % 27.1 % (15.3-44.8); MCV 82.2 fL (80-100); MPV 8.2 fL (7.6-11.3); RBC Red Blood Cell Count 4.31 M/uL (3.86-4.86)
[2022-05-05 14:36] LABS: Protime INR 0.93
[2022-05-05 14:39] LABS: ALT/SGPT 27 U/L (12-78); AST/SGOT 16 U/L (15-37); Albumin 3.8 g/dL (3.4-5.0); Alkaline Phosphatase 81 U/L (45-117); BUN Blood Urea Nitrogen 11 mg/dL (7-18); Bicarbonate 26 mmol/L (21-32); Bilirubin Total 0.2 mg/dL (0.2-1.0); Glomerular Filtration Rate 103 ml/min (=/>90); Glucose Level 90 mg/dL (74-106); Magnesium 2.1 mg/dL (1.8-2.4); NT PRO-BNP 17 pg/mL (<125); Potassium 3.9 mmol/L (3.5-5.1); Protein, Total 7.5 g/dL (6.4-8.2); Sodium Level 137 mmol/L (136-145)
[2022-05-05 14:49] LABS: Bilirubin Direct < 0.1 mg/dL (0-0.2); Troponin High Sensitivity < 3.0 pg/mL (<58.9)
[2022-05-05] MEDS ORDERED: MAGNES/ALUMIN/SIMET 30ML UCUP ONE (14:51)
[2022-05-05] MEDS ORDERED: LIDOCAINE VISCOUS 2% SOLN 15 ML UDC ONE (14:53)
[2022-05-05] MEDS ORDERED: LORazepam 2 MG/ML VIAL ONE (14:53)
[2022-05-05] MEDS ORDERED: NA CHLORIDE 0.9% 500 ML ONE (14:53)
--- NOTE | 2022-05-05 17:04 | ER ---
Nurse's Notes [facility] Name: Aruna Hsu Age: 32 yrs Sex: Female : 1990 Arrival Date: 05/05/2022 Time: 13:23 Bed 18 Private MD: Diagnosis: Dyspnea;Chest pain, unspecified Presentation: 05/05 13:28 Chief complaint: Patient states: Patient states she has shortness of breath, cant take ph a deep breath, increased today while at work. [place] like she was going to pass out. "Difficult to get the air in, lightheaded". Been going on for a couple of weeks. Coronavirus screen: Client denies travel out of the [place] in the last 14 days. Ebola Screen: Patient negative for fever greater than or equal to 101.5 degrees Fahrenheit, and additional compatible Ebola Virus Disease symptoms Patient denies exposure to infectious person. Patient denies travel to an Ebola-affected area in the 21 days before illness onset. No symptoms or risks identified at this time. Initial Sepsis Screen: Does the patient meet any 2 criteria? No. Patient's initial sepsis screen is negative. Does the patient have a suspected source of infection? No. Patient's initial sepsis screen is negative. Risk Assessment: Do you want to hurt yourself or someone else? Patient reports no desire to harm self or others. Onset of symptoms was May 05, 2022. 13:28 Method Of Arrival: Ambulatory ph 13:28 Acuity: JOE 3 ph Triage Assessment: 13:36 General: Appears in no apparent distress. Behavior is cooperative, appropriate for age, ph anxious. Pain: Denies pain. 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 - Social history:: Smoking status: Patient denies any tobacco usage or history of. Patient/guardian denies using. Screenin:46 Abuse screen: Denies threats or abuse. Denies injuries from another. Nutritional jh6 screening: No deficits noted. Tuberculosis screening: No symptoms or risk factors identified. Fall Risk None identified. Assessment: 14:16 General: pt placed in room 18 at this time. . jh6 14:16 General: Appears in no apparent distress. Behavior is cooperative, anxious. jh6 14:16 Respiratory: Reports shortness of breath FEELS LIKE SHE CANT TAKE A DEEP BREATH. jh6 15:20 Reassessment: Patient and/or family updated on plan of care and expected duration. Pain jh6 level reassessed. Patient is alert, oriented x 3, equal unlabored respirations, skin warm/dry/pink. Patient denies pain at this time. 16:30 Reassessment: Patient and/or family updated on plan of care and expected duration. Pain jh6 level reassessed. Patient is alert, oriented x 3, equal unlabored respirations, skin warm/dry/pink. FEELING MUCH BETTER AND STATES THAT SHE IS ABLE TO TAKE A DEEP BREATH. Patient denies pain at this time. Vital Signs: 13:28 BP 130 / 90; Pulse 86; Resp 18; Temp 98.1; Pulse Ox 100% ; Weight 77.11 kg; Height 5 ph ft. 2 in. (157.48 cm); Pain 0/10; 14:00 BP 124 / 85; Pulse 83; Resp 17; Pulse Ox 100% ; Pain 0/10; jh6 16:00 BP 128 / 68; Pulse 80; Resp 17; Pulse Ox 100% ; Pain 0/10; jh6 17:00 BP 122 / 74; Pulse 80; Resp 17; Pulse Ox 100% ; Pain 0/10; jh6 13:28 Body Mass Index 31.09 (77.11 kg, 157.48 cm) ph ED Course: 13:23 Patient arrived in ED. rg4 13:25 Omero Richards PA is PHCP. [facility] 13:25 Honorio Goodson DO is Attending Physician. [facility] 13:33 Triage completed. ph 13:36 Arm band placed on right wrist. Patient placed in waiting room, Patient notified of ph wait time. 14:00 Placed in gown. Bed in low position. Call light in reach. Side rails up X 1. Adult w/ jh6 patient. 14:05 XRAY Chest (1 view) In Process Unspecified. EDMS 14:12 Inserted saline lock: 20 gauge in right antecubital area, using aseptic technique. kc6 Blood collected. 14:12 SARS-COV-2 RT PCR (Document "Date of Onset" if Symptomatic) Sent. kc6 14:12 Basic Metabolic Panel Sent. kc6 14:12 CBC with Diff Sent. kc6 14:12 D-Dimer Sent. kc6 14:12 LFT's Sent. kc6 14:12 Magnesium Sent. kc6 14:12 NT PRO-BNP Sent. kc6 14:12 PT-INR Sent. kc6 14:12 Troponin HS Sent. 6 14:14 Inez Padron, RN is Primary Nurse. [facility] 17:45 IV discontinued, intact, bleeding controlled, No redness/swelling at site. Pressure 6 dressing applied. 17:46 No provider procedures requiring assistance completed. 6 Administered Medications: 14:48 Drug: GI Cocktail without - (Maalox Suspension 30 ml, Lidocaine Liquid 2 % 15 jh6 ml) Route: PO; 16:00 Follow up: Response: No adverse reaction [facility] 14:48 Drug: Ativan (LORazepam) 0.5 mg Route: IVP; Site: right antecubital; [facility] 16:00 Follow up: Response: Anxiety decreased [facility] 14:48 Drug: NS 0.9% 1000 ml Route: IV; Rate: 1 bolus; Site: right antecubital; 6 16:00 Follow up: IV Status: Completed infusion [facility] Medication: 17:46 VIS not applicable for this client. [facility] Outcome: 17:03 Discharge ordered by [facility] 17:46 Discharged to home ambulatory. [facility] 17:46 Condition: good 17:46 Discharge instructions given to patient, Instructed on discharge instructions, follow up and referral plans. Demonstrated understanding of instructions, follow-up care, medications, Prescriptions given X 2. 17:47 Patient left the ED. [facility] Signatures: Dispatcher [employer] EDMS Omero Richards PA PA jmm Hall, Patricia RN RN Meg Damon rg4 Inez Padron RN RN 6 [facility] Corrections: (The following items were deleted from the chart) 13:34 13:28 BP 130 / 90; Pulse 86bpm; Resp 18bpm; Pulse Ox 100%; Temp 98.1F; 77.11 kg; Height ph 5 ft. 2 in.; BMI: 31.0; Pain 0/10; ph
--- NOTE | 2022-05-05 17:04 | EDPHYS ---
Physician Documentation [facility] Name: Aruna Hsu Age: 32 yrs Sex: Female : 1990 Arrival Date: 05/05/2022 Time: 13:23 Bed 18 Private MD: ED Physician Honorio Goodson SOLE LAYER HAND: 05/05 13:36 LMP 04/28/2022 ph Historical: - Allergies: 13:34 NKA; ph - PMHx: 13:34 None; ph - Immunization history:: Adult Immunizations unknown. - Social history:: Smoking status: Patient denies any tobacco usage or history of. Patient/guardian denies using. Exam: 16:56 ECG was reviewed by the Attending Physician. [facility] Vital Signs: 13:28 BP 130 / 90; Pulse 86; Resp 18; Temp 98.1; Pulse Ox 100% ; Weight 77.11 kg; Height 5 ph ft. 2 in. (157.48 cm); Pain 0/10; 14:00 BP 124 / 85; Pulse 83; Resp 17; Pulse Ox 100% ; Pain 0/10; jh6 16:00 BP 128 / 68; Pulse 80; Resp 17; Pulse Ox 100% ; Pain 0/10; jh6 17:00 BP 122 / 74; Pulse 80; Resp 17; Pulse Ox 100% ; Pain 0/10; jh6 13:28 Body Mass Index 31.09 (77.11 kg, 157.48 cm) ph MDM: 14:29 Patient medically screened. [facility] 16:56 Data reviewed: vital signs, nurses notes. Counseling: I had a detailed discussion with [facility] the patient and/or guardian regarding: the historical points, exam findings, and any diagnostic results supporting the discharge/admit diagnosis. 17:01 Counseling: I had a detailed discussion with the patient and/or guardian regarding: lab [facility] results, radiology results, the need for outpatient follow up, to return to the emergency department if symptoms worsen or persist or if there are any questions or concerns that arise at home. ED course: Patient states feeling much better. Patient advised to follow up with pcp and otherwise given strict return precautions. Patient understood and agrees with the plan of care. . 05/05 13:39 Order name: Basic Metabolic Panel; Complete Time: 15:12 [facility] 05/05 13:39 Order name: CBC with Diff; Complete Time: 14:48 [facility] 05/05 13:39 Order name: D-Dimer; Complete Time: 14:38 [facility] 05/05 13:39 Order name: LFT's; Complete Time: 15:12 [facility] 05/05 13:39 Order name: Magnesium; Complete Time: 15:12 [facility] 05/05 13:39 Order name: NT PRO-BNP; Complete Time: 15:12 [facility] 05/05 13:39 Order name: PT-INR; Complete Time: 14:38 [facility] 05/05 13:39 Order name: Troponin HS; Complete Time: 15:12 [facility] 05/05 13:39 Order name: XRAY Chest (1 view); Complete Time: 14:30 [facility] 05/05 13:39 Order name: EKG; Complete Time: 13:40 [facility] 05/05 13:41 Order name: SARS-COV-2 RT PCR (Document "Date of Onset" if Symptomatic); Complete Time: [facility] 15:28 05/05 13:39 Order name: Cardiac monitoring; Complete Time: 14:41 [facility] 05/05 13:39 Order name: EKG - Nurse/Tech; Complete Time: 14:41 [facility] 05/05 13:39 Order name: IV Saline Lock; Complete Time: 14:12 [facility] 05/05 13:39 Order name: Labs collected and sent; Complete Time: 14:12 [facility] 05/05 13:39 Order name: O2 Per Protocol; Complete Time: 14:41 [facility] 05/05 13:39 Order name: O2 Sat Monitoring; Complete Time: 14:41 jm EC:56 Rate is 70 beats/min. Rhythm is regular. QRS [place] is Normal. OR interval is normal. QRS jmm interval is normal. QT interval is normal. No Q waves. T waves are Normal. No ST changes noted. Reviewed by me. Administered Medications: 14:48 Drug: GI Cocktail without - (Maalox Suspension 30 ml, Lidocaine Liquid 2 % 15 jh6 ml) Route: PO; 16:00 Follow up: Response: No adverse reaction 6 14:48 Drug: Ativan (LORazepam) 0.5 mg Route: IVP; Site: right antecubital; jh6 16:00 Follow up: Response: Anxiety decreased jh6 14:48 Drug: NS 0.9% 1000 ml Route: IV; Rate: 1 bolus; Site: right antecubital; [facility] 16:00 Follow up: IV Status: Completed infusion 6 Disposition: 18:14 Co-signature as Attending Physician, Honorio Goodson DO I agree with the assessment and ms3 plan of care. Disposition Summary: 05/05/22 17:03 Discharge Ordered Location: Home jm Condition: Stable jmm Diagnosis - Dyspnea jmm - Chest pain, unspecified jmm Followup: jmm - With: Private Physician - When: 2 - 3 days - Reason: Recheck today's complaints, Continuance of care, Re-evaluation by your physician Discharge Instructions: - Discharge Summary Sheet jmm - Nonspecific Chest Pain, Adult jmm - Shortness of Breath, Adult jmm Forms: - Medication Reconciliation Form [facility] - Thank You Letter [facility] - Antibiotic Education [facility] - Prescription Opioid Use [facility] Prescriptions: - Pepcid 20 mg Oral Tablet - take 1 tablet by ORAL route every 12 hours for 10 days; 20 tablet; Refills: 0, [facility] Product Selection Permitted - Hydroxyzine HCl 25 mg Oral Tablet - take 1 tablet by ORAL route every 6 hours As needed; 20 tablet; Refills: 0, [facility] Product Selection Permitted Signatures: Dispatcher [employer] Omero Acosta PA PA jmm Hall, Patricia, RN Honorio Winters ph, DO DO ms3 [facility] institute[facility]nez hernandez RN RN 6
[2022-05-05 18:45] VITALS: TEMP 98.1; O2SAT 100
[2022-05-05 18:53] VITALS: BP 122/74
--- NOTE | 2022-05-06 13:59 | EKG ---
Test Date: 2022-05-05 Test Time: 14:40:19 Corporate Recycling Manager: HELDER MEASUREMENT RESULTS: Intervals: Rate: 70 NC: 148 QRSD: 94 QT: 412 QTc: 444 [place]: P: 70 NC: 148 QRS: 23 T: 54 INTERPRETIVE STATEMENTS: Normal sinus rhythm Normal ECG No previous ECG available for comparison Electronically Signed On 05-06-22 13:57:38 CDT by Donavan Burrell
== END 2022-05-05 17:47 | disposition home or self-care (01) ==
LOC: ER 13:21
DX: R06.00 Dyspnea, unspecified (principal); R07.9 Chest pain, unspecified; Z20.822 Contact with and (suspected) exposure to COVID-19
CPT/HCPCS: 36415; 71045; 80048; 80076; 83735; 83880; 84484; 85025; 85379; 85610; 93005; 96361; 96374; 99284; J7040; U0003

== ENCOUNTER 2022-08-14 04:45 | Emergency (ER) | payer SELFPAY ==
--- OUTSIDE RECORDS SUMMARY | 2022-08-14 04:47 | XMS REPORT | Continuity of Care Document ---
:1990 Author Organization [facility] t Address [address] [place] [address] Care Team Providers Name Role Phone BARBARA COSTA Attending Clinician Unavailable Florian Franco MD Attending Clinician Problems This patient has no known problems. Allergies, Adverse Reactions, Alerts Allergy Allergy Status Severity Reaction(s) Onset Inactive Treating Comm ents Source Name Type Date Date Clinician NO KNOWN Drug Active [facility] ALLERGIE Class [facility] Medications This patient has no known medications. Procedures This patient has no known procedures. Encounters Start End Encounter Admission Attending Care Care Encounter Source Date/Time Date/Time Type Type Clinicians Facility Department ID 2020-12-14 2020-12-14 Outpatient R JULISSA [facility] [id number] 11:20:00 11:20:00 BARBARA [facility] 2019-04-03 2019-04-03 Emergency Joan [facility] [id number] 08:21:37 10:14:00 Florian Adler [id number] [place] [id number] [place] [phone] [id number] Results This patient has no known results.
[2022-08-14] MEDS ORDERED: KETOROLAC 30 MG/ML INJ ONE (04:56)
[2022-08-14] MEDS ORDERED: METHYLPREDNISOLONE 125 MG INJ ONE (04:56)
[2022-08-14 05:03] LABS: Urine Blood Negative (Negative); Urine Glucose Negative (Negative); Urine Protein Negative (Negative); Urine pH 5.5 (5.0-7.0)
[2022-08-14 05:28] LABS: Absolute Lymphocytes (CBC) 1.8 K/uL (0.7-4.9); Hematocrit 37.1 % (36.0-45.0); Lymphocytes % 22.4 % (15.3-44.8); MCV 83.2 fL (80-100); MPV 8.2 fL (7.6-11.3); RBC Red Blood Cell Count 4.46 M/uL (3.86-4.86)
[2022-08-14 05:41] LABS: Potassium 3.8 mmol/L (3.5-5.1); Troponin High Sensitivity 3.8 pg/mL (<58.9)
--- NOTE | 2022-08-14 06:21 | ER ---
Nurse's Notes [facility] Name: Aruna Hsu Age: 32 yrs Sex: Female : 1990 Arrival Date: 08/14/2022 Time: 04:51 Bed 16 Private MD: Diagnosis: Chest pain on breathing;Chest pain, unspecified;Costochondritis Presentation: 08/14 04:54 Chief complaint: Patient states: Patient C/O substernal chest pain,onset 2100 last pf1 night. Patient stated the chest pain woke her up this AM at 0400 and has been constant sharp pressure sensation since. 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 04:54 Method Of Arrival: EMS: [facility] pf1 04:54 Coronavirus screen: Client denies travel out of the [place] in the last 14 days. At this pf1 time, the client does not indicate any symptoms associated with coronavirus-19. Ebola Screen: Patient negative for fever greater than or equal to 101.5 degrees Fahrenheit, and additional compatible Ebola Virus Disease symptoms. Initial Sepsis Screen: Does the patient meet any 2 criteria? No. Patient's initial sepsis screen is negative. Does the patient have a suspected source of infection? No. Patient's initial sepsis screen is negative. Risk Assessment: Do you want to hurt yourself or someone else? Patient reports no desire to harm self or others. Onset of symptoms was August 13, 2022. Care prior to arrival: Medication(s) given: ASA, 81 mg, x 4, Nitroglycerin, 0.4 mg SL x 1. 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 - Social history:: Smoking status: Patient/guardian denies using. Screenin:17 Abuse screen: Denies threats or abuse. Nutritional screening: No deficits noted. pf1 Tuberculosis screening: No symptoms or risk factors identified. Fall Risk None identified. Assessment: 04:55 General: Appears in no apparent distress. uncomfortable, well groomed, well developed, pf1 Behavior is cooperative, appropriate for age, crying. 04:55 Pain: Complains of pain in chest Pain currently is 8 out of 10 on a pain scale. Pain pf1 began 2100 last night Aggravated by inhaling makes the chest pain worse. Neuro: No deficits noted. Level of Consciousness is awake, alert, obeys commands, Oriented to person, place, time, situation. Cardiovascular: Chest pain is described as Pain is 8 out of 10 on a pain scale. began Patient stated the chest pain woke her up at 0400 AM and has been constant since episodes are continuous is aggravated by breathing. Respiratory: Airway is patent Respiratory effort is even, unlabored, Respiratory pattern is regular, symmetrical, Breath sounds are clear bilaterally. GI: No deficits noted. No signs and/or symptoms were reported involving the gastrointestinal system. : No deficits noted. No signs and/or symptoms were reported regarding the genitourinary system. EENT: No deficits noted. No signs and/or symptoms were reported regarding the EENT system. Derm: No deficits noted. No signs and/or symptoms reported regarding the dermatologic system. Vital Signs: 04:54 BP 136 / 89; Pulse 89; Resp 20; Temp 98.8; Pulse Ox 97% ; Weight 81.65 kg; Height 5 ft. pf1 2 in. (157.48 cm); Pain 8/10; 05:45 BP 116 / 74; Pulse 76; Resp 18; Pulse Ox 98% ; Pain 0/10; pf1 06:25 BP 118 / 78; Pulse 83; Resp 18; Temp 98.1(O); Pulse Ox 97% ; Pain 0/10; pf1 04:54 Body Mass Index 32.92 (81.65 kg, 157.48 cm) pf1 ED Course: 04:51 Patient arrived in ED. kl 04:51 Mushtaq Hills MD is Attending Physician. kdr 04:54 Vandana villegas, JEFRY is Primary Nurse. pf1 05:00 Arm band placed on right wrist. pf1 05:00 Patient has correct armband on for positive identification. Placed in gown. Bed in low pf1 position. Call light in reach. 05:10 Triage completed. pf1 05:17 No provider procedures requiring assistance completed. Maintain EMS IV. Dressing pf1 intact. Good blood return noted. Site clean \T\ dry. Gauge \T\ site: 20 gauge to LAC. Flushed left antecubital. 05:20 XRAY Chest (1 view) In Process Unspecified. EDMS 06:51 IV discontinued, intact, bleeding controlled, No redness/swelling at site. Pressure pf1 dressing applied. Administered Medications: 05:11 Drug: Ketorolac 15 mg Route: IVP; Site: left antecubital; pf1 05:58 Follow up: Response: Pain is decreased pf1 05:11 Drug: SOLU-Medrol (methylPrednisoLONE) 125 mg Route: IVP; Site: left antecubital; pf1 05:58 Follow up: Response: Marked relief of symptoms pf1 Medication: 05:16 VIS not applicable for this client. pf1 Outcome: 06:20 Discharge ordered by . kdr 06:51 Discharged to home ambulatory, with family. pf1 06:51 Condition: improved 06:51 Discharge instructions given to patient, family, Instructed on discharge instructions, follow up and referral plans. medication usage, Demonstrated understanding of instructions, follow-up care, medications, Prescriptions given X 2. 06:52 Patient left the ED. pf1 Signatures: Dispatcher [employer] EDMS Adrianna Sanchez RN RN Mushtaq Rodriguez MD MD kdr finley, Pamala, RN RN pf1 Corrections: (The following items were deleted from the chart) 05:10 04:54 Chief complaint: Patient states: Patient C/O substernal chest pain,onset 2100 pf1 last night. Patient stated the chest pain woke her up this AM at 0400 and has been constant sharp pressure sensation since. 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 pf1 05:12 05:10 Allergies: NKA; pf1 pf1 06:30 06:25 BP 118 / 78; Pulse 83bpm; Resp 18bpm; Pulse Ox 97%; pf1 pf1
--- NOTE | 2022-08-14 06:21 | EDPHYS ---
Physician Documentation [facility] Name: Aruna Hsu Age: 32 yrs Sex: Female : 1990 Arrival Date: 08/14/2022 Time: 04:51 Bed 16 Private MD: ED Physician Mushtaq Hills HPI: 08/14 04:53 This 32 yrs old Female presents to ER via Unassigned with complaints of Right kdr anterior chest wall pain. 04:53 Patient states that she woke earlier this morning with some minor discomfort in her kdr right anterior chest wall. She went back to sleep and then was awakened later by the worsening pain in the same area. Pain is particularly strong when she moves or coughs or turns her torso. Otherwise with laying still she is not having any discomfort. I explained to her that this sounded like probably a costochondral inflammation but would rule out cardiac origin while addressing the potential inflammatory process in her anterior chest wall. Onset: The symptoms/episode began/occurred suddenly, just prior to arrival, this morning. Severity of symptoms: At their worst the symptoms were severe incapacitating just prior to arrival, in the emergency department the symptoms have improved mildly. The patient has not experienced similar symptoms in the past. The patient has not recently seen a physician. 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 - Social history:: Smoking status: Patient/guardian denies using. ROS: 04:53 Constitutional: Negative for fever, chills, and weight loss, Eyes: Negative for injury, kdr pain, redness, and discharge, ENT: Negative for injury, pain, and discharge, Neck: Negative for injury, pain, and swelling, Respiratory: Negative for shortness of breath, cough, wheezing, and pleuritic chest pain, Abdomen/GI: Negative for abdominal pain, nausea, vomiting, diarrhea, and constipation, Back: Negative for injury and pain, : Negative for injury, bleeding, discharge, and swelling, MS/Extremity: Negative for injury and deformity, Skin: Negative for injury, rash, and discoloration, Neuro: Negative for headache, weakness, numbness, tingling, and seizure activity. Psych: Negative for depression, anxiety, suicide ideation, homicidal ideation, and hallucinations, Allergy/Immunology: Negative for hives, rash, and allergies, Endocrine: Negative for neck swelling, polydipsia, polyuria, polyphagia, and marked weight changes, Hematologic/Lymphatic: Negative for swollen nodes, abnormal bleeding, and unusual bruising. 04:53 Cardiovascular: Positive for chest pain, Negative for edema, orthopnea, palpitations, paroxysmal nocturnal dyspnea, acute changes. Exam: 04:53 Constitutional: This is a well developed, well nourished patient who is awake, alert, kdr and in no acute distress. Head/Face: Normocephalic, atraumatic. Eyes: Pupils equal round and reactive to light, extra-ocular motions intact. Lids and lashes normal. Conjunctiva and sclera are non-icteric and not injected. Cornea within normal limits. Periorbital areas with no swelling, redness, or edema. Neck: Trachea midline, no thyromegaly or masses palpated, and no cervical lymphadenopathy. Supple, full range of motion without nuchal rigidity, or vertebral point tenderness. No Meningismus. Chest/axilla: Normal chest wall appearance and motion. Nontender with no deformity. No lesions are appreciated. Abdomen/GI: Soft, non-tender, with normal bowel sounds. No distension or tympany. No guarding or rebound. No evidence of tenderness throughout. Back: No spinal tenderness. No costovertebral tenderness. Full range of motion. Skin: Warm, dry with normal turgor. Normal color with no rashes, no lesions, and no evidence of cellulitis. MS/ Extremity: Pulses equal, no cyanosis. Neurovascular intact. Full, normal range of motion. Neuro: Awake and alert, GCS 15, oriented to person, place, time, and situation. Cranial nerves II-XII grossly intact. Motor strength 5/5 in all extremities. Sensory grossly intact. Cerebellar exam normal. Normal gait. Psych: Awake, alert, with orientation to person, place and time. Behavior, mood, and affect are within normal limits. 04:53 Cardiovascular: Rate: normal, Rhythm: regular, Pulses: no pulse deficits are appreciated, Edema: is not appreciated. Vital Signs: 04:54 BP 136 / 89; Pulse 89; Resp 20; Temp 98.8; Pulse Ox 97% ; Weight 81.65 kg; Height 5 ft. pf1 2 in. (157.48 cm); Pain 8/10; 05:45 BP 116 / 74; Pulse 76; Resp 18; Pulse Ox 98% ; Pain 0/10; pf1 06:25 BP 118 / 78; Pulse 83; Resp 18; Temp 98.1(O); Pulse Ox 97% ; Pain 0/10; pf1 04:54 Body Mass Index 32.92 (81.65 kg, 157.48 cm) pf1 MDM: 04:53 Data reviewed: vital signs, nurses notes, lab test result(s). kdr 06:20 Patient medically screened. [facility] 08/14 04:52 Order name: Basic Metabolic Panel; Complete Time: 06:11 kdr 08/14 04:52 Order name: CBC with Diff; Complete Time: 06:11 [facility] 08/14 04:52 Order name: Troponin HS; Complete Time: 06:11 [facility] 08/14 04:52 Order name: XRAY Chest (1 view); Complete Time: 06:41 [facility] 08/14 05:03 Order name: Urine Dipstick-Ancillary; Complete Time: 05:17 EDMS 08/14 05:08 Order name: Urine --Ancillary (enter results); Complete Time: 06:11 mw2 08/14 04:52 Order name: EKG; Complete Time: 04:53 kdr 08/14 04:52 Order name: Cardiac monitoring; Complete Time: 05:01 [facility] 08/14 04:52 Order name: EKG - Nurse/Tech; Complete Time: 05:01 [facility] 08/14 04:52 Order name: IV Saline Lock; Complete Time: 05:01 [facility] 08/14 04:52 Order name: Labs collected and sent; Complete Time: 05:19 kdr 08/14 04:52 Order name: O2 Per Protocol; Complete Time: 05:19 [facility] 08/14 04:52 Order name: O2 Sat Monitoring; Complete Time: 05:19 kdr Administered Medications: 05:11 Drug: Ketorolac 15 mg Route: IVP; Site: left antecubital; pf1 05:58 Follow up: Response: Pain is decreased pf1 05:11 Drug: SOLU-Medrol (methylPrednisoLONE) 125 mg Route: IVP; Site: left antecubital; pf1 05:58 Follow up: Response: Marked relief of symptoms pf1 Disposition Summary: 08/14/22 06:20 Discharge Ordered Location: Home kdr Problem: new kdr Symptoms: have improved kdr Condition: Stable kdr Diagnosis - Chest pain on breathing kdr - Chest pain, unspecified kdr - Costochondritis kdr Followup: kdr - With: Private Physician - When: 2 - 3 days - Reason: If symptoms return, Further diagnostic work-up, Recheck today's complaints, Continuance of care, Re-evaluation by your physician Discharge Instructions: - Discharge Summary Sheet kdr - Costochondritis kdr - Chest Wall Pain, [id number] kdr - Nonspecific Chest Pain, Adult, [id number]-[id number] kdr Forms: - Medication Reconciliation Form kdr - Thank You Letter kdr Prescriptions: - Ibuprofen 600 mg Oral Tablet - take 1 tablet by ORAL route every 6 hours As needed take with food; 30 tablet; kdr Refills: 0, Product Selection Permitted - Medrol (Jesus) 4 mg Oral Tablets, Dose Pack - take 1 tablet by ORAL route as directed - follow package instructions; 1 kdr packet; Refills: 0, Product Selection Permitted Signatures: Dispatcher [employer] Mushtaq Mendoza MD MD kdr Vandana villegas RN RN pf1 Corrections: (The following items were deleted from the chart) 05:12 05:10 Allergies: NKA; pf1 pf1
--- NOTE | 2022-08-14 06:38 | RAD REPORT ---
EXAM DESCRIPTION: RAD - Chest Single View - 08/14/2022 5:18 am CLINICAL HISTORY: CHEST PAIN COMPARISON: 05/05/2022 FINDINGS: Lines: None. Lungs: No evidence of edema or pneumonia. Pleural: No significant pleural effusions or pneumothorax. Cardiac: The heart size is within normal limits. Mediastinum: Within normal limits. Bones: No acute fractures. Other: None IMPRESSION: No acute cardiopulmonary disease.
[2022-08-14 07:01] VITALS: BP 118/78; TEMP 98.1; O2SAT 97
--- NOTE | 2022-08-15 14:59 | EKG ---
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
== END 2022-08-14 06:52 | disposition home or self-care (01) ==
LOC: ER 04:45
DX: M94.0 Chondrocostal junction syndrome [Tietze] (principal); R07.9 Chest pain, unspecified
CPT/HCPCS: 36415; 71045; 80048; 81003; 81025; 84484; 85025; 93005; 96374; 96375; 99284; J2930

== ENCOUNTER 2023-02-27 09:26 | Emergency (ER) | payer SELFPAY ==
--- OUTSIDE RECORDS SUMMARY | 2023-02-27 09:28 | XMS REPORT | Continuity of Care Document ---
:1990 Author Organization [facility] t Address [address] [place] [address] Care Team Providers Name Role Phone PCP, PATIENT DOES NOT HAVE A Primary Care Physician UnavailAntoinette Friedman Attending Clinician ANTOINETTE SANDERS Attending Clinician Unavailable BARBARA COSTA Attending Clinician Unavailable Florian Franco MD Attending Clinician ANTOINETTE SANDERS Admitting Clinician Unavailable Problems Condition Condition Condition Status Onset Resolution Last Treating Co mments Source Name Details Category Date Date Treatment Clinician Date Lump or Lump or Disease Active Overview: Univ ers mass in mass in 03-12 Formattin ity o f breast breast 00:00: g of this [place] note Medical might be Branch different from the original. Medical records from [facility]- 3. Impressio n: negative. Normal bilateral breast exam. No evidence of malignanc y. Subcutane ous nodules seen on 04/2012 US are no longer present. 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 Disease Active Overview : Univers anemia anemia 05-21 Formattin ity of 00:00: g of this [place] 00 note Medical might be Branch different from the original. 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-21 it y of cus cus 00:00: [place] carrier, carrier, 00 Medica l +RV +RV Branch culture, culture, currently currently Normal Normal Disease Active Univers delivery delivery 16 ity of 00:00: [place] 00 Medical Branch Allergies, Adverse Reactions, Alerts Allergy Allergy Status Severity Reaction(s) Onset Inactive Treating Comm ents Source Name Type Date Date Clinician NO KNOWN Drug Active Univers ALLERGIE Class ity of S [place] Medical Branch Social History Social Habit Start Date Stop Date Quantity Comments Source Exposure to 2022-08-06 2022-08-16 Not sure [facility] SARS-CoV-2 (event) 00:00:00 08:24:00 Medica l Branch Sex Assigned At [address] 1990 [facility] y [facility] 00:00:00 00:00:00 Medical Branch Smoking Status Start Date Stop Date Source Tobacco [facility] Medications Ordered Filled Start Stop Current Ordering Indication Dosage Frequency Signature Comments Components Source Medication Medication Date Date Medication? Clinician (SIG) Name Name cyclobenzap 2021-09 No 10mg 10 mg, Uni vers rine 10-17 Oral, ity of (FLEXERIL) 15:15: 14:44 ONCE, 1 Cristiano as tablet 10 00 :00 dose, On Medica l mg [facility] 08/16/22 at 0915, Routine ketorolac 2021-09 15mg 15 mg, Unive rs (TORADOL) 10-17 Slow IV ity of injection 14:45: 14:44 Push, [place] 15 mg 00 :00 ONCE, 1 Medical dose, On Branch [facility] 08/16/22 at 0845, CONCEPCIÓN cyclobenzap 2021-09 Yes [id number] 10mg Take 1 Univers rine 10 mg 2-13 tablet by ity of tablet 00:00: mouth in 00 the Medical morning Branch and 1 tablet at noon and 1 tablet in the evening. ibuprofen 2021-09 Yes [id number] 800mg Take 1 Univers 800 mg 2-13 tablet by ity of tablet 00:00: mouth [place] 00 every 8 Medical (eight) Branch hours as needed for Pain (scale 4-6). traMADOL 50 2016-09 Yes 50mg Take 1 Univ ers mg tablet 0-30 tablet by ity o f 00:00: mouth [place] 00 every 6 Medical (six) Branch hours as needed (pain). proMETHazin 2016-09 Yes 25mg Take 1 Univ ers e 25 mg 0-30 tablet by ity of tablet 00:00: mouth [place] 00 every 6 Medical (six) Branch hours as needed for Nausea and Vomiting (N/V). Yes 1{tbl} Take 1 Tab U nivers vitamin 9-17 by mouth ity of w/FA 00:00: daily. [place] ( 00 Medical RX OR Branch GENERIC EQUIVALENT) tablet docusate Yes 240mg Take 1 Cap Un mendy calcium 9-17 by mouth ity of (SURFAK) 00:00: once daily Cristiano as 240 mg 00 as needed Medical capsule for Branch Constipati on. ferrous Yes 325mg Take 1 Tab Uni vers sulfate 325 17 by mouth 2 it y of mg (65 mg 00:00: (two) [place] iron) 00 times Medical tablet daily. Branch ibuprofen Yes 600mg Take 1 Tab U nivers (MOTRIN) 9-17 by mouth ity of 600 mg 00:00: every 6 [place] tablet 00 (six) Medical hours as Branch needed for Pain. Vital Signs Vital Name Observation Time Observation Value Comments Source Systolic blood 2022-08-16 15:30:00 129 [facility]Hg[facility] Diastolic blood 2022-08-16 15:30:00 80 mm[Hg] [facility] Heart rate 2022-08-16 15:30:00 64 /min [facility] Respiratory rate 2022-08-16 15:30:00 16 /min [facility] Oxygen saturation in 2022-08-16 15:30:00 99 /min [facility] Arterial blood by [facility] Pulse oximetry Branch Body temperature 2022-08-16 14:22:00 37.11 Sol [facility] Body weight 2022-08-16 14:22:00 81.647 kg [facility] BMI 2022-08-16 14:22:00 32.92 kg/m2 [facility] Procedures Procedure Date / Time Performed Performing Clinician Sourc e XR CHEST 1 VW 2022-08-16 14:46:17 Antoinette Sanders [facility] TROPONIN I 2022-08-16 14:35:00 Antoinette Sanders [facility] COMP. METABOLIC PANEL 2022-08-16 14:35:00 Antoinette Sanders [facility] ([id number]) [facility] CBC WITH DIFF 2022-08-16 14:35:00 Antoinette Sanders [facility] POCT TEST 2022-08-16 14:33:00 Antoinette Sanders [facility] CONSENT/REFUSAL FOR 2022-08-16 14:18:39 Doctor Unassigned, No Un [facility] DIAGNOSIS AND Name [facility] TREATMENT Encounters Start End Encounter Admission Attending Care Care Encounter Source Date/Time Date/Time Type Type Clinicians Facility Department ID 2022-08-16 2022-08-16 [facility] [id number] Univers 08:25:00 10:01:00 Antoinette ADLER [id number] i ty of [place] [id number] [facility] [id number] [facility] 084 Branch 2022-08-16 2022-08-16 Emergency [facility] ERT [id number] Univers 08:25:00 10:01:00 [facility] 2020-12-14 2020-12-14 [id number] Univers 11:20:00 11:20:00 BARBARA [facility] 2019-04-03 2019-04-03 [facility] [id number] 08:21:37 10:14:00 Florian Adler [id number] [place] [id number] [place] [id number] Results Test Description Test Time Test Comments Results Result Comments Source TROPONIN I 2022-08-16 15:08:56 Test Item Value Reference Range Interpretation Comme nts TROPONIN I (test code = 0.001 ng/mL See_Comment [Au tomated message] The [id number]) system which ge nerated this result tra nsmitted reference range : <=0.034. The reference r crow was not used to int erpret this result as normal/abnormal . LIZZIE (test code = LIZZIE) Reference (Normal) Range (defined by the 99th percentile reference limit): <= 0.034 ng/mL Note: Cardiac troponin begins to rise 3-4 hours after the onset of ischemia. Repeat in 4-6 hours if the sample was drawn within 3-4 hours of the onset of the symptom and found normal. Diagnosis of myocardial injury is made with acute changes in cTn concentrations with at least one serial sample above the 99th percentile upper reference limit (URL), taken together with the patient's clinical presentation. Biotin has been reported to cause a negative bias, interpret results relative to patient's use of biotin. Lab Interpretation Normal (test code = 40723-1) [facility]. METABOLIC PANEL (41570)2022-08-16 14:57:38 Test Item Value Reference Range Interpretation Comments NA (test code = 138 mmol/L 135-145 3702640937) K (test code = 3.9 mmol/L 3.5-5.0 3593697481) CL (test code = 105 mmol/L 98-108 9092547696) CO2 TOTAL (test code 25 mmol/L 23-31 = 6353868193) AGAP (test code = 2-16 5930832851) BUN (test code = 8 mg/dL 7-23 5295785266) GLUCOSE (test code = 97 mg/dL 70-110 4788751168) CREATININE (test code 0.50 mg/dL 0.50-1.04 = 6670494754) TOTAL BILI (test code 0.4 mg/dL 0.1-1.1 = 3009083907) CALCIUM (test code = 8.8 mg/dL 8.6-10.6 6553508341) T PROTEIN (test code 7.2 g/dL 6.3-8.2 = 0574465268) ALBUMIN (test code = 4.4 g/dL 3.5-5.0 7639706843) ALK PHOS (test code = 66 U/L 34-122 2599839855) ALTv (test code = 26 U/L 5-35 1742-6) AST(SGOT) (test code 22 U/L 13-40 = 2437971167) eGFR (test code = mL/min/1.73m2 1310918977) LIZZIE (test code = LIZZIE) Association of Glomerular Filtration Rate (GFR) and Staging of Kidney Disease* + + +- +| GFR (mL/min/1.73 m2) ?| With Kidney Damage ?| ?Without Kidney Damage+ ------+ ----+ ------+| ?>90 ?| ?Stage one ?| ? Normal ?+ -+ + -+| ?60-89 ?| ?Stage two ?| ? Decreased GFR ? + + +- +| ?30-59 ?| ?Stage three ?| ? Stage three ? + + +- +| ?15-29 ?| ?Stage four ? | ? Stage four ?+ -+ + -+| ?<15 (or dialysis) ? ?| ?Stage five ? | ? Stage five ?+ -+ + -+ *Each stage assumes the associated GFR level has been in effect for at least three months. ?Stages 1 to 5, with or without kidney disease, indicate chronic kidney disease. Notes: Determination of stages one and two (with eGFR >59mL/min/1.73 m2) requires estimation of kidney damage for at least three months as defined by structural or functional abnormalities of the kidney, manifested by either:Pathological abnormalities or Markers of kidney damage (including abnormalities in the composition of the blood or urine or abnormalities in imaging tests). [facility] WITH [id number] 14:42:55 Test Item Value Reference Range Interpretation Comments WBC (test code = See_Comment [Automated 4252-2) message] The sy stem which generated this result transmitted reference range : 4.30 - 11.10 10*3/?L. The reference range was not used to interpret this result as normal/abnormal . RBC (test code = See_Comment [Automated 357-8) message] The sy stem which generated this result transmitted reference range : 3.93 - 5.25 10*6/?L. The reference range was not used to interpret this result as normal/abnormal . HGB (test code = 11.9 g/dL 11.6-15.0 718-7) HCT (test code = 38.1 % 35.7-45.2 4544-3) MCV (test code = 87.6 fL 80.6-95.5 787-2) MCH (test code = 27.4 pg 25.9-32.8 785-6) MCHC (test code = 31.2 g/dL 31.6-35.1 L 786-4) RDW-SD (test code = 47.9 fL 39.0-49.9 13172-0) RDW-CV (test code = 14.9 % 12.0-15.5 788-0) PLT (test code = See_Comment [Automated 777-3) message] The sy stem which generated this result transmitted reference range : 166 - 358 10*3/ ?L. The reference r crow was not used to interpret this result as normal/abnormal . MPV (test code = 10.1 fL 9.5-12.9 47228-4) NRBC/100 WBC (test See_Comment [Automat ed code = 6195039757) message] The system which generated this result transmitted reference range : 0.0 - 10.0 /100 WBCs. The refer ence range was not u sed to interpret th is result as normal/abnormal . NRBC x10^3 (test code See_Comment [Auto mated = 1018216791) message] The s ystem which generated this result transmitted reference range : 10*3/?L. The reference range was not used to interpret this result as normal/abnormal . GRAN MAT (NEUT) % 65.0 % (test code = 770-8) IMM GRAN % (test code 0.60 % = 5295598505) LYMPH % (test code = 27.8 % 736-9) MONO % (test code = 5.3 % 5905-5) EOS % (test code = 0.9 % 713-8) BASO % (test code = 0.4 % 706-2) GRAN MAT x10^3(ANC) 5.31 10*3/uL 1.88-7.09 (test code = 7145470627) IMM GRAN x10^3 (test 0.05 10*3/uL 0.00-0.06 code = 6272935250) LYMPH x10^3 (test code 2.27 10*3/uL 1.32-3.29 = 731-0) MONO x10^3 (test code 0.43 10*3/uL 0.33-0.92 = 742-7) EOS x10^3 (test code = 0.07 10*3/uL 0.03-0.39 711-2) BASO x10^3 (test code 0.03 10*3/uL 0.01-0.07 = 704-7) Lab Interpretation Abnormal (test code = 67598-5) [id number] 14:33:00 Test Item Value Reference Range Interpretation Comments POCT PREG (test code = 1605) NEGATIVE On board controls acceptable with PRESENT C Line (test code = 3574) POCT PREG LOT # (test code = 3575) [id number] POCT PREG TEST DATE (test 2023-12-03 code = 3576) Lab Interpretation (test code = Normal 25872-1) [facility]"
--- NOTE | 2023-02-27 10:30 | RAD REPORT ---
EXAM DESCRIPTION: CT - Head Brain Wo Cont - 02/27/2023 10:00 am CLINICAL HISTORY: headache, right hand weaknes COMPARISON: Head Brain Wo Cont dated 10/24/2018 TECHNIQUE: Noncontrast head CT images were obtained without IV contrast. Multiplanar reformats were generated and reviewed. All CT scans are performed using dose optimization technique as appropriate and may include automated exposure control or mA/KV adjustment according to patient size. FINDINGS: No intracranial hemorrhage, mass, or edema. Midline structures are unremarkable. Normal ventricular caliber for age. Mixon-white matter differentiation is preserved, without evidence of acute infarct. No abnormal extra- axial fluid collections. Mastoid air cells and visualized portions of the paranasal sinuses are clear. No acute bony findings. IMPRESSION: No evidence of an acute intracranial process.
--- NOTE | 2023-02-27 10:36 | ER ---
Nurse's Notes [facility] Name: Aruna Hsu Age: 32 yrs Sex: Female : 1990 Arrival Date: 02/27/2023 Time: : Bed 13 Private MD: Diagnosis: Lesion of ulnar nerve, right upper limb Presentation: 02/27 09:28 Chief complaint: Patient states: Numbness to right 4th and 5th fingers since she woke nj1 up yesterday at around 4:30am. States arm feels weird, "hand feels like it is weak". Has happened in the past but has never lasted this long. Denies any known injury. 09:28 Method Of Arrival: Ambulatory [facility] 09:28 Coronavirus screen: Vaccine status: Patient reports receiving the 2nd dose of the covid nj1 vaccine. Ebola Screen: Patient denies travel to an Ebola-affected area in the 21 days before illness onset. No acute neurological deficit is noted. Initial Sepsis Screen: Does the patient meet any 2 criteria? No. Patient's initial sepsis screen is negative. Does the patient have a suspected source of infection? No. Patient's initial sepsis screen is negative. Risk Assessment: Do you want to hurt yourself or someone else? Patient reports no desire to harm self or others. Onset of symptoms was February 26, 2023. 09: Acuity: JOE 3 nj1 10:53 Pre-hospital glucose is not applicable to this patient. ko1 Stroke Activation: Symptom onset > 6 hours Physician: Stroke Attending; Name: ; Notified At: ; Arrived At: Physician: Chief Stroke Resident; Name: ; Notified At: ; Arrived At: Physician: Stroke Resident; Name: ; Notified At: ; Arrived At: Physician: ED Attending; Name: ; Notified At: ; Arrived At: Physician: ED Resident; Name: ; Notified At: ; Arrived At: Historical: - Allergies: 09:37 No Known Allergies; nj1 - PMHx: 09:37 None; nj1 - PSHx: 09:37 None; nj1 - Immunization history:: Client reports receiving the 2nd dose of the Covid vaccine. - Social history:: Smoking status: Patient denies any tobacco usage or history of. Screenin:30 [facility] ED Fall Risk Assessment (Adult) History of falling in the last 3 months, ko1 including since admission No falls in past 3 months (0 pts) Confusion or Disorientation No (0 pts) Intoxicated or Sedated No (0 pts) Impaired Gait No (0 pts) Mobility Assist Device Used No (0 pt) Altered Elimination No (0 pt) Score/Fall Risk Level 0 - 2 = Low Risk Oriented to surroundings, Maintained a safe environment, Educated pt \\T\\ family on fall prevention, incl call for assistance when getting out of bed, Assessed \\T\\ reinforced patient's understanding of fall precautions, Provided non-skid footwear, Hourly rounding (assess needs \\T\\ fall precautionary measures) done, Used ambulatory aids as needed (educated on \\T\\ assisted with), Used gait belt as appropriate. Abuse screen: Denies threats or abuse. Denies injuries from another. Nutritional screening: No deficits noted. Tuberculosis screening: No symptoms or risk factors identified. Assessment: 09:30 VAN Scoring: Arm Drift: Patients demonstrates NO arm weakness. Patient is VAN Negative. ko1 Visual Disturbance: No visual disturbance noted. Aphasia: No aphasia noted. Neglect: No neglect noted. TNKase (Tenecteplase) Screening: Contraindications:. Pain: Denies pain. Neuro: Reports numbness fourth and fifth fingers. Vital Signs: 09:28 BP 152 / 89; Pulse 65; Resp 18; Temp 98.5(O); Pulse Ox 99% on R/A; nj1 10:47 BP 142 / 78; Pulse 62; Resp 16; Pulse Ox 99% ; ko1 NIH Stroke Scale Scores: 09:30 NIHSS Score: 0 ko1 ED Course: 09:26 Patient arrived in ED. rg4 09:30 Patient has correct armband on for positive identification. Bed in low position. Call ko1 light in reach. Side rails up X 1. Pulse ox on. NIBP on. 09:30 No provider procedures requiring assistance completed. ko1 09:36 Bay Acharya MD is Attending Physician. bs3 09:37 Triage completed. nj1 09:37 Arm band placed on right wrist. nj1 09:48 Riya Ely RN is Primary Nurse. ko1 10:01 CT Head Brain wo Cont In Process Unspecified. EDMS 10:34 Tryel Anglin MD is Referral Physician. bs3 10:46 Patient did not have IV access during this emergency room visit. ko1 Administered Medications: No medications were administered Medication: 09:30 VIS not applicable for this client. ko1 Outcome: 10:35 Discharge ordered by . bs3 10:53 Discharged to home ambulatory, with family. ko1 10:53 Condition: stable 10:53 Discharge instructions given to patient, family, Instructed on discharge instructions, follow up and referral plans. Demonstrated understanding of instructions, follow-up care, medications, Prescriptions given X 1. 10:54 Patient left the ED. ko1 NIH Stroke Scale - NIH Stroke Score Date: 02/27/2023 Time: 09:30 Total Score = 0 10. Dysarthria (speech clarity - read or repeat words) - 0(Normal) 11. Extinction and Inattention (visual/tactile/auditory/spatial/personal) - 0(No abnormality) 1a. Level of Consciousness (LOC) - 0(Alert) 1b. Level of Consciousness (LOC) (Month \\T\\ Age) - 0(Both) 1c. LOC Commands (Open \\T\\ Closes Eyes/Fiberglass Quality Technician) - 0(Both) 2. Best Gaze (Lateral Gaze Paresis) - 0(Normal) 3. Visual Field Loss - 0(No visual loss) 4. Facial Palsy - 0(Normal) 5a. Left Arm: Motor (10-second hold) - 0(No drift) 5b. Right Arm: Motor (10-second hold) - 0(No drift) 6a. Left Leg: Motor (5-second hold - always test supine) - 0(No drift) 6b. Right Leg: Motor (5-second hold - always test supine) - 0(No drift) 7. Limb Ataxia (finger/nose \\T\\ heel/alegria - test with eyes open) - 0(Absent) 8. Sensory Loss (pinprick arms/legs/face) - 0(Normal) 9. Best Language: Aphasia (description/naming/reading) - 0(No aphasia) Initials: ko1 Signatures: Dispatcher [employer] Meg Thornton rg4 Bay Acharya MD MD bs3 Riya Ely, RN RN ko1 Guera Morgan RN RN nj1
--- NOTE | 2023-02-27 10:36 | EDPHYS ---
Physician Documentation [facility] Name: Aruna Hsu Age: 32 yrs Sex: Female : 1990 Arrival Date: 02/27/2023 Time: 09: Bed 13 Private MD: ED Physician Bay Acharya HPI: 02/27 10:03 This 32 yrs old Female presents to ER via Ambulatory with complaints of bs3 Weakness, Numbness Of Arm. 10:03 32yo presents with headache and right 4th/5th digit numbness. The headache was bs3 posterior and started yesterday, in addition she notes that since waking up yesterday she has numbness that feels like her right fourth and fifth digits are asleep she has difficulty using them as well she does note that she sleeps on right side this is never happened before no weakness of her arms or legs otherwise is isolated to those digits no chest pain or shortness of breath no back pain no neck pain. Historical: - Allergies: 09:37 No Known Allergies; nj1 - PMHx: 09:37 None; nj1 - PSHx: 09:37 None; nj1 - Immunization history:: Client reports receiving the 2nd dose of the Covid vaccine. - Social history:: Smoking status: Patient denies any tobacco usage or history of. ROS: 10:11 Constitutional: Negative for fever, chills bs3 10:11 All other systems are negative. Exam: 10:11 Constitutional: This is a well developed, well nourished patient who is awake, alert, bs3 and in no acute distress. Head/Face: Normocephalic, atraumatic. Eyes: Pupils equal round and reactive to light, extra-ocular motions intact. Lids and lashes normal. ENT: mmm, no posterior phyarngeal erythema Chest/axilla: Normal chest wall appearance and motion. Nontender with no deformity. No lesions are appreciated. Cardiovascular: Regular rate and rhythm with a normal S1 and S2. symmetric pulses in upper extremities Respiratory: Lungs have equal breath sounds bilaterally, clear to auscultation, no respiratory distress Abdomen/GI: Soft, non-tender, no rebound or guarding Skin: Warm, dry with normal turgor. Normal color with no rashes, no lesions, and no evidence of cellulitis. MS/ Extremity: Pulses equal, no cyanosis. Neurovascular intact. Full, normal range of motion. Neuro: Awake and alert, GCS 15, oriented to person, place, time, and situation. Cranial nerves II-XII grossly intact. Motor strength 5/5 in all extremities. She has intact sensation to light touch in all of her extremities in all of her digits she reports when I touch her right fifth digit and the ulnar aspect of her fourth digit that there is sensation difference compared to the other digits her strength is intact, she has intact sensation on her upper extremities. Psych: Awake, alert, with orientation to person, place and time. Behavior, mood, and affect are within normal limits. Vital Signs: 09:28 BP 152 / 89; Pulse 65; Resp 18; Temp 98.5(O); Pulse Ox 99% on R/A; nj1 10:47 BP 142 / 78; Pulse 62; Resp 16; Pulse Ox 99% ; ko1 NIH Stroke Scale Scores: 09:30 NIHSS Score: 0 ko1 MDM: 09:37 Patient medically screened. bs3 10:11 Data reviewed: vital signs, nurses notes. ED course: Patient with right fourth and bs3 fifth digit sensation change her distribution is consistent with ulnar nerve pathology she has no history of similar things happening to make me think of multiple sclerosis and the distribution is consistent with a peripheral nerve she sleeps on that side and her significant other notes that she may sleep in a weird position with her right arm and elbow advised outpatient follow-up with Dr. Rupa jarvis given her headache although she says that it is similar to her normal headaches we will rule out large mass I considered dissection but she has no chest pain shortness of breath back pain or weakness anywhere else. 10:34 ED course: CT negative for acute pathology will start on anti-inflammatory in case she bs3 has nerve compression advised outpatient follow-up. 02/27 09:47 Order name: CT Head Brain wo Cont; Complete Time: 10:34 bs3 Administered Medications: No medications were administered Disposition Summary: 02/27/23 10:35 Discharge Ordered Location: Home bs3 Problem: new bs3 Symptoms: have improved bs3 Condition: Stable bs3 Diagnosis - Lesion of ulnar nerve, right upper limb bs3 Followup: bs3 - With: Tyrel Anglin MD - When: 5 - 6 days - Reason: Re-evaluation by your physician Discharge Instructions: - Discharge Summary Sheet bs3 - Ulnar Nerve Contusion Rehab-[facility] bs3 Forms: - Medication Reconciliation Form bs3 - Thank You Letter bs3 - Antibiotic Education bs3 - Prescription Opioid Use bs3 - [employer]_Portal_[email or web address].htm bs3 Prescriptions: - Naprosyn 500 mg Oral Tablet - take 1 tablet by ORAL route 2 times per day take with food; 30 tablet; Refills: bs3 0, Product Selection Permitted NIH Stroke Scale - NIH Stroke Score Date: 02/27/2023 Time: 09:30 Total Score = 0 10. Dysarthria (speech clarity - read or repeat words) - 0(Normal) 11. Extinction and Inattention (visual/tactile/auditory/spatial/personal) - 0(No abnormality) 1a. Level of Consciousness (LOC) - 0(Alert) 1b. Level of Consciousness (LOC) (Month \T\ Age) - 0(Both) 1c. LOC Commands (Open \T\ Closes Eyes/Ghost Writer) - 0(Both) 2. Best Gaze (Lateral Gaze Paresis) - 0(Normal) 3. Visual Field Loss - 0(No visual loss) 4. Facial Palsy - 0(Normal) 5a. Left Arm: Motor (10-second hold) - 0(No drift) 5b. Right Arm: Motor (10-second hold) - 0(No drift) 6a. Left Leg: Motor (5-second hold - always test supine) - 0(No drift) 6b. Right Leg: Motor (5-second hold - always test supine) - 0(No drift) 7. Limb Ataxia (finger/nose \T\ heel/alegria - test with eyes open) - 0(Absent) 8. Sensory Loss (pinprick arms/legs/face) - 0(Normal) 9. Best Language: Aphasia (description/naming/reading) - 0(No aphasia) Initials: ko1 Signatures: Dispatcher [employer] Bay Hudson MD MD bs3 Guera Morgan RN RN nj1 Corrections: (The following items were deleted from the chart) 10:09 10:03 32yo presents with headache and right 4th/5th digit numbness. The bs3 headache was posterior and started yesterday, in addition. bs3
[2023-02-27 11:01] VITALS: TEMP 98.5; O2SAT 99
[2023-02-27 11:02] VITALS: BP 142/78
== END 2023-02-27 10:54 | disposition home or self-care (01) ==
LOC: ER 09:26
DX: G56.21 Lesion of ulnar nerve, right upper limb (principal)
CPT/HCPCS: 70450

== ENCOUNTER → 2023-11-17 | Emergency (ER) | payer SELFPAY ==
--- OUTSIDE RECORDS SUMMARY | 2023-11-17 15:40 | XMS REPORT | Continuity of Care Document ---
Author Name Unknown Address [address] [place] [address] [facility] thconnect Address [address] [place] [address] Care Team Providers Care Restaurant Front Manager Name Role Phone PCP, PATIENT DOES NOT HAVE A Primary Care Physic tc Unavailable Antoinette Mckeon Attending Clinician [phone] ANTOINETTE SANDERS Attending Clinician Unavailable BARBARA COSTA Attending Clinician Unavailable Florian Franco MD Attending Clinician [phone] ANTOINETTE SANDERS Admitting Clinician Unavailable Problems Condition Name Condition Details Condition Category Status Onset Date Resolution Date Last Treatment Date Treating Clinician Comments Source Lump or mass in breast Lump or mass in breast Disease Active 03-12 00:00: 00 Overview: Formattin g of this note might be different from the original. Medical records from [facility]- 3. Impressio n: negative. Normal bilateral breast exam. No evidence of malignanc y. Subcutane ous nodules seen on 04/2012 US are no longer present. 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 [facility] anemia anemia Disease Active 05-21 00:00: 00 Overview: Formattin g of this note might be different from the original. 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, +RV culture, currently Disease Active 05-21 00:00: 00 [facility] Normal delivery Normal delivery Disease Active 05-20 00:00: 00 [facility] Allergies, Adverse Reactions, Alerts Allergy Name Allergy Type Status Severity Reaction(s) Onset Date Inactive Date Treating Clinician Comments Source NO KNOWN ALLERGIE S Drug Class Active [facility] Social History Social Habit Start Date Stop Date Quantity Comments Source Exposure to SARS-CoV-2 (event) 2022-08-06 00:00:00 2022-08-16 08:24:00 Not sure [facility] Sex Assigned At 1990 00:00:00 1990 00:00:00 [facility] Smoking Status Start Date Stop Date Source Tobacco smoking consumption unknown [facility] Medications Ordered Medication Name Filled Medication Name Start Date Stop Date Current Medication? Ordering Clinician Indication Dosage Frequency Signature (SIG) Comments Components Source cyclobenzap rine (FLEXERIL) tablet 10 mg 2021-09 15:15: 00 08-16 14:44 :00 No 10mg 10 mg, Oral, ONCE, 1 dose, On Mon08/16/22 at 0915, Routine [facility] ketorolac (TORADOL) injection 15 mg 2021-09 14:45: 00 08-16 14:44 :00 No 15mg 15 mg, Slow IV Push, ONCE, 1 dose, On Mon08/16/22 at 0845, CONCEPCIÓN [facility] cyclobenzap rine 10 mg tablet 2021-09 00:00: 00 Yes [id number] 10mg Take 1 tablet by mouth in the morning and 1 tablet at noon and 1 tablet in the evening. [facility] ibuprofen 800 mg tablet 2021-09 00:00: 00 Yes [id number] 800mg Take 1 tablet by mouth every 8 (eight) hours as needed for Pain (scale 4-6). [facility] traMADOL 50 mg tablet 2016-09 0 00:00: 00 Yes 50mg Take 1 tablet by mouth every 6 (six) hours as needed (pain). [facility] proMETHazin e 25 mg tablet 2016-09 00:00: 00 Yes 25mg Take 1 tablet by mouth every 6 (six) hours as needed for Nausea and Vomiting (N/V). [facility] vitamin w/FA ( RX OR GENERIC EQUIVALENT) tablet 05-21 00:00: 00 Yes 1{tbl} Take 1 Tab by mouth daily. [facility] docusate calcium (SURFAK) 240 mg capsule 05-21 00:00: 00 Yes 240mg Take 1 Cap by mouth once daily as needed for Constipati on. [facility] ferrous sulfate 325 mg (65 mg iron) tablet 05-21 00:00: 00 Yes 325mg Take 1 Tab by mouth 2 (two) times daily. [facility] ibuprofen (MOTRIN) 600 mg tablet 05-21 00:00: 00 Yes 600mg Take 1 Tab by mouth every 6 (six) hours as needed for Pain. [facility] Vital Signs Vital Name Observation Time Observation Value Comments S ource Systolic blood pressure 2022-08-16 15:30:00 129 mm[Hg] [facility] Diastolic blood pressure 2022-08-16 15:30:00 80 mm[Hg] [facility] Heart rate 2022-08-16 15:30:00 64 /min [facility] Respiratory rate 2022-08-16 15:30:00 16 /min [facility] Oxygen saturation in Arterial blood by Pulse oximetry 2022-08-16 15:30:00 99 /min [facility] Body temperature 2022-08-16 14:22:00 37.11 Sol [facility] Body weight 2022-08-16 14:22:00 81.647 kg [facility] BMI 2022-08-16 14:22:00 32.92 kg/m2 [facility] Procedures Procedure Date / Time Performed Performing Clinicia n Source XR CHEST 1 VW 2022-08-16 14:46:17 Antoinette Sanders [facility] TROPONIN I 2022-08-16 14:35:00 Antoinette Sanders [facility] COMP. METABOLIC PANEL ([id number]) 2022-08-16 14:35:00 Antoinette Sanders [facility] CBC WITH DIFF 2022-08-16 14:35:00 Antoinette Sanders [facility] POCT TEST 2022-08-16 14:33:00 Antoinette Sanders [facility] CONSENT/REFUSAL FOR DIAGNOSIS AND TREATMENT 2022-08-16 14:18:39 Doctor Unassigned, [facility] Encounters Start Date/Time End Date/Time Encounter Type Admission Type Attending [facility] Care Facility Care Department Encounter ID Source 2022-08-16 08:25:00 2022-08-16 10:01:00 Emergency Antoinette Sanders [facility] [id number] [facility] 2022-08-16 08:25:00 2022-08-16 10:01:00 Emergency X PHOEBE, ANTOINETTE [facility] ERT [id number] [facility] 2020-12-14 11:20:00 2020-12-14 11:20:00 Outpatient [facility] [id number] [facility] 2019-04-03 08:21:37 2019-04-03 10:14:00 Emergency Florian Franco [facility] [id number] Results Test Description Test Time Test Comments Results Result Co mments Source [facility][id number][facility]2022-08-16 14:57:38* Test Item Value Reference Range Interpretation Comme nts NA (test code = 2668388418) 138 mmol/L 135-145 K (test code = 1632263376) 3.9 mmol/L 3.5-5.0 CL (test code = 6977780991) 105 mmol/L 98-108 CO2 TOTAL (test code = 6504005506) 25 mmol/L 23-31 AGAP (test code = 1279734529) 2-16 BUN (test code = 5576659395) 8 mg/dL 7-23 GLUCOSE (test code = 9360238317) 97 mg/dL 70-110 CREATININE (test code = 0426850959) 0.50 mg/dL 0.50-1.04 TOTAL BILI (test code = 9267819905) 0.4 mg/dL 0.1-1.1 CALCIUM (test code = 2897925826) 8.8 mg/dL 8.6-10.6 T PROTEIN (test code = 4905909308) 7.2 g/dL 6.3-8.2 ALBUMIN (test code = 7922359376) 4.4 g/dL 3.5-5.0 ALK PHOS (test code = 8086021600) 66 U/L 34-122 ALTv (test code = 1742-6) 26 U/L 5-35 AST(SGOT) (test code = 3329764649) 22 U/L 13-40 eGFR (test code = 9264358969) mL/min/1.73m2 LIZZIE (test code = LIZZIE) Association of [...] or urine or abnormalities in imaging tests). [facility] WITH [id number] 14:42:55* Test Item Value Reference Range Interpretation Comme nts WBC (test code = 6690-2) See_Comment [Automated LEPOWa ge] The system which generated this result transmitted reference range: 4.30 - 11.10 10*3/?L. The reference range was not used to interpret this result as normal/abnormal. RBC (test code = 789-8) See_Comment [Automated LEPOWa ge] The system which generated this result transmitted reference range: 3.93 - 5.25 10*6/?L. The reference range was not used to interpret this result as normal/abnormal. HGB (test code = 718-7) 11.9 g/dL 11.6-15.0 HCT (test code = 4544-3) 38.1 % 35.7-45.2 MCV (test code = 787-2) 87.6 fL 80.6-95.5 MCH (test code = 785-6) 27.4 pg 25.9-32.8 MCHC (test code = 786-4) 31.2 g/dL 31.6-35.1 L RDW-SD (test code = 19551-7) 47.9 fL 39.0-49.9 RDW-CV (test code = 788-0) 14.9 % 12.0-15.5 PLT (test code = 777-3) See_Comment [Automated LEPOWa ge] The system which generated this result transmitted reference range: 166 - 358 10*3/?L. The reference range was not used to interpret this result as normal/abnormal. MPV (test code = 71014-5) 10.1 fL 9.5-12.9 NRBC/100 WBC (test code = 4399623344) See_Comment [Automated [employer] ssage] The system which generated this result transmitted reference range: 0.0 - 10.0 /100 WBCs. The reference range was not used to interpret this result as normal/abnormal. NRBC x10^3 (test code = 8823258773) See_Comment [Automated messa ge] The system which generated this result transmitted reference range: 10*3/?L. The reference range was not used to interpret this result as normal/abnormal. GRAN MAT (NEUT) % (test code = 770-8) 65.0 % IMM GRAN % (test code = 6572123616) 0.60 % LYMPH % (test code = 736-9) 27.8 % MONO % (test code = 5905-5) 5.3 % EOS % (test code = 713-8) 0.9 % BASO % (test code = 706-2) 0.4 % GRAN MAT x10^3(ANC) (test code = 7502624771) 5.31 10*3/uL 1.88-7.09 IMM GRAN x10^3 (test code = 1038272792) 0.05 10*3/uL 0.00-0.06 LYMPH x10^3 (test code = 731-0) 2.27 10*3/uL 1.32-3.29 MONO x10^3 (test code = 742-7) 0.43 10*3/uL 0.33-0.92 EOS x10^3 (test code = 711-2) 0.07 10*3/uL 0.03-0.39 BASO x10^3 (test code = 704-7) 0.03 10*3/uL 0.01-0.07 Lab Interpretation (test code = 10158-7) [id number] Test Item Value Reference Range Interpretation Comme nts POCT PREG (test code = 1605) NEGATIVE On board controls acceptable with C Line (test code = 3574) PRESENT POCT PREG LOT # (test code = 3575) [id number] POCT PREG TEST DATE ( test code = 3576) 2023-12-03 Lab Interpretation (test cod e = 82832-8) Normal [facility]"
--- NOTE | 2023-11-17 16:35 | RAD REPORT ---
EXAM DESCRIPTION: CT - Head Brain Wo Cont - 11/17/2023 4:12 pm CLINICAL HISTORY: PAIN COMPARISON: Head Brain Wo Cont dated 02/27/2023; Head Brain Wo Cont dated 10/24/2018 TECHNIQUE: Noncontrast head CT images ad were obtained without IV contrast. Multiplanar reformats we re generated and reviewed. All CT scans are performed using dose optimization technique as appropriate and may include automated exposure control or mA/KV adjustment according to patient size. FINDINGS: No intracranial hemorrhage, mass, or edema. Midline structures are unremarkable. Normal ventricular caliber for age. Mixon-white matter differentiation is preserved, without evidence of acute infarct. No abnormal extra- axial fluid collections. Mastoid air cells and visualized portions of the paranasal sinuses are clear. No acute bony findings. Right parietal small scalp hematoma. IMPRESSION: No evidence of an acute intracranial process. Right parietal small scalp hematoma.
--- NOTE | 2023-11-17 16:47 | ER ---
Nurse's Notes [facility] Name: Aruna Hsu Age: 33 yrs Sex: Female : 1990 Arrival Date: 11/17/2023 Time: 15:37 Bed 20 Private MD: Diagnosis: Unspecified injury of head, initial encounter Presentation: 11/16 15:43 Chief complaint: Patient states: RDZ since hitting her head on counter top last night ll1 while cleaning at home. Dizzy, feels weird, and RDZ since. No known LOC. Coronavirus screen: Client denies travel out of the [place] in the last 14 days. At this time, the client does not indicate any symptoms associated with coronavirus-19. Ebola Screen: Patient denies travel to an Ebola-affected area in the 21 days before illness onset. Initial Sepsis Screen: Does the patient meet any 2 criteria? No. Patient's initial sepsis screen is negative. Does the patient have a suspected source of infection? No. Patient's initial sepsis screen is negative. Risk Assessment: Do you want to hurt yourself or someone else? Patient reports no desire to harm self or others. Onset of symptoms was November 16, 2023. 15:43 Method Of Arrival: Ambulatory ll1 15:43 Acuity: JOE 3 ll1 Triage Assessment: 15:47 General: Appears uncomfortable, Behavior is calm, cooperative, appropriate for age. ll1 Pain: Complains of pain in head Quality of pain is described as aching. Neuro: Reports dizziness, headache. Historical: - Allergies: 15:44 No Known Allergies; ll1 - Home Meds: 15:44 None [Active]; ll1 - PMHx: 15:44 None; ll1 - PSHx: 15:44 None; ll1 - Immunization history:: Adult Immunizations up to date. - Social history:: Smoking status: Patient denies any tobacco usage or history of. Screenin:04 [facility] ED Fall Risk Assessment (Adult) History of falling in the last 3 months, mb9 including since admission Yes- single mechanical fall (1 pt) Confusion or Disorientation No (0 pts) Intoxicated or Sedated No (0 pts) Impaired Gait No (0 pts) Mobility Assist Device Used No (0 pt) Altered Elimination No (0 pt) Score/Fall Risk Level 0 - 2 = Low Risk Oriented to surroundings, Maintained a safe environment, Educated pt \T\ family on fall prevention, incl call for assistance when getting out of bed. Abuse screen: Denies threats or abuse. Nutritional screening: No deficits noted. Tuberculosis screening: No symptoms or risk factors identified. Assessment: 16:03 General: Appears in no apparent distress. Behavior is calm, cooperative. Pain: mb9 Complains of pain in head Quality of pain is described as throbbing. Neuro: Pruitt Agitation-Sedation Scale (RASS): 0 - Alert and Calm Level of Consciousness is awake, alert, obeys commands, Oriented to person, place, time, situation, Appropriate for age Reports dizziness, headache. Cardiovascular: Patient's skin is warm and dry. Respiratory: Airway is patent Respiratory effort is even, unlabored, Respiratory pattern is regular, symmetrical, Breath sounds are clear bilaterally. GI: Patient currently denies nausea, vomiting. : No signs and/or symptoms were reported regarding the genitourinary system. EENT: No signs and/or symptoms were reported regarding the EENT system. Derm: Skin is pink, warm \T\ dry. Musculoskeletal: Range of motion: intact in all extremities. 16:47 Reassessment: No changes from previously documented assessment. Patient and/or family mb9 updated on plan of care and expected duration. Pain level reassessed. Patient is alert, oriented x 3, equal unlabored respirations, skin warm/dry/pink. Vital Signs: 15:43 BP 165 / 108; Pulse 93; Resp 17; Temp 98; Pulse Ox 100% ; Weight 77.11 kg; Height 5 ft. ll1 2 in. ; Pain 9/10; 16:08 BP 140 / 80; Pulse 88; Resp 16; Pulse Ox 100% on R/A; mb9 16:47 BP 142 / 87; Pulse 84; Resp 18; Pulse Ox 100% on R/A; mb9 15:43 Body Mass Index 31.09 (77.11 kg, 157.48 cm) ll1 15:43 Pain Scale: Adult ll1 Jaylin Coma Score: 17:33 Eye Response: spontaneous(4). Motor Response: obeys commands(6). Verbal Response: kb oriented(5). Total: 15. ED Course: 15:41 Patient arrived in ED. im 15:42 Estrella Sanford FNP-C [facility]. kb 15:42 Maximiliano Osorio MD is Attending Physician. kb 15:44 Triage completed. ll1 15:44 Arm band placed on Patient placed in an exam room, on a stretcher. ll1 15:54 Joan Koch, RN is Primary Nurse. mb9 16:04 Placed in gown. Bed in low position. Call light in reach. Side rails up X 1. Client mb9 placed on continuous cardiac and pulse oximetry monitoring. NIBP monitoring applied. Door closed. Noise minimized. Warm blanket given. 16:05 No provider procedures requiring assistance completed. mb9 16:[address] via wheelchair. mb9 16:14 CT Head Brain wo Cont In Process Unspecified. EDMS 16:46 Patient did not have IV access during this emergency room visit. mb9 Administered Medications: No medications were administered Medication: 16:05 VIS not applicable for this client. mb9 Outcome: 16:46 Discharge ordered by MD. kb 16:47 Discharged to home ambulatory, mb9 16:47 Condition: stable 16:47 Discharge instructions given to patient, Instructed on discharge instructions, follow up and referral plans. Demonstrated understanding of instructions, follow-up care, 16:47 Patient left the ED. mb9 Signatures: Dispatcher [employer] EDEstrella Esposito FNP-C FNP-Gisselle Thakur RN RN ll1 Joan Koch, RN RN mb9 Sara Blair Corrections: (The following items were deleted from the chart) 15:46 15:43 Resp 17bpm; 77.11 kg; Height 5 ft. 2 in.; BMI: 31.0; Pain 9/10, Adult; ll1 ll1 15:47 15:43 Acuity: JOE 4 ll1 ll1 15:47 15:43 Pulse 93bpm; Resp 17bpm; Pulse Ox 100%; Temp 98F; 77.11 kg; Height 5 ft. 2 in.; ll1 BMI: 31.0; Pain 9/10, Adult; ll1 15:53 15:43 Chief complaint: Patient states: RDZ since hitting her head on counter top ll1 yesterday at work. Dizzy, feels weird, and RDZ since. ll1
--- NOTE | 2023-11-17 16:47 | EDPHYS ---
Physician Documentation [facility] Name: Aruna Hsu Age: 33 yrs Sex: Female : 1990 Arrival Date: 11/17/2023 Time: 15:37 Bed 20 Private MD: ED Physician Maximiliano Osorio HPI: 11/16 17:33 This 33 yrs old Female presents to ER via Ambulatory with complaints of Head kb Injury With LOC-Adult, Dizziness. 17:33 Patient is a 33-year-old female who presents for dizziness and headache after hitting kb her head on the kitchen counter last night. Reports she was dazed after hitting her head but denies LOC. States she was drowsy afterwards so she went to bed when she woke up the headache was worse. States dizziness is worse with movement of head.. Historical: - Allergies: 15:44 No Known Allergies; ll1 - Home Meds: 15:44 None [Active]; ll1 - PMHx: 15:44 None; ll1 - PSHx: 15:44 None; ll1 - Immunization history:: Adult Immunizations up to date. - Social history:: Smoking status: Patient denies any tobacco usage or history of. ROS: 17:30 Constitutional: As per HPI kb Exam: 17:32 Constitutional: This is a well developed, well nourished patient who is awake, alert, kb and in no acute distress. Head/Face: Normocephalic, atraumatic. Eyes: Pupils equal round and reactive to light, extra-ocular motions intact. Lids and lashes normal. Conjunctiva and sclera are non-icteric and not injected. Cornea within normal limits. Periorbital areas with no swelling, redness, or edema. ENT: Moist Mucous membranes Cardiovascular: Regular rate Respiratory: Respirations even and unlabored. No increased work of breathing. Talking in full sentences Abdomen/GI: Soft, non-tender. No distention Skin: Warm, dry with normal turgor. Normal color. MS/ Extremity: Pulses equal, no cyanosis. Neurovascular intact. Full, normal range of motion. Neuro: Awake and alert, GCS 15, oriented to person, place, time, and situation. Moves all extremities. Normal gait. Vital Signs: 15:43 BP 165 / 108; Pulse 93; Resp 17; Temp 98; Pulse Ox 100% ; Weight 77.11 kg; Height 5 ft. ll1 2 in. ; Pain 9/10; 16:08 BP 140 / 80; Pulse 88; Resp 16; Pulse Ox 100% on R/A; mb9 16:47 BP 142 / 87; Pulse 84; Resp 18; Pulse Ox 100% on R/A; mb9 15:43 Body Mass Index 31.09 (77.11 kg, 157.48 cm) ll1 15:43 Pain Scale: Adult ll1 Charlo Coma Score: 17:33 Eye Response: spontaneous(4). Motor Response: obeys commands(6). Verbal Response: kb oriented(5). Total: 15. MDM: 15:42 Patient medically screened. kb 17:33 Data reviewed: vital signs, nurses notes. kb 17:33 Differential diagnosis: Contusion of Hematoma on head, Intracranial bleed- subdural, kb Concussion without LOC. Counseling: I had a detailed discussion with the patient and/or guardian regarding the historical points, exam findings, and any diagnostic results supporting the discharge/admit diagnosis, radiology results, the need for outpatient follow up, a family practitioner, to return to the emergency department if symptoms worsen or persist or if there are any questions or concerns that arise at home. 11/16 15:44 Order name: CT Head Brain wo Cont; Complete Time: 16:36 kb Administered Medications: No medications were administered Disposition Summary: 11/17/23 16:46 Discharge Ordered Notes: Location: Home kb Condition: Stable kb Diagnosis - Unspecified injury of head, initial encounter kb Followup: kb - With: Emergency Department - When: As needed - Reason: Worsening of condition Followup: kb - With: Private Physician - When: 2 - 3 days - Reason: Recheck today's complaints, Continuance of care, Re-evaluation by your physician Discharge Instructions: - Discharge Summary Sheet kb - Concussion, Adult, [id number] kb - Head Injury, Adult, [id number] kb Forms: - Medication Reconciliation Form kb - Thank You Letter kb - Antibiotic Education kb - Prescription Opioid Use kb - Patient Portal Instructions kb - Leadership Thank You Letter kb - Work release form mb9 Addendum: 11/20/2023 09:39 I was immediately available for consultation during this patient's visit. I did not e c2 personally see the patient or discuss the patient with the DUSTY. . Signatures: Dispatcher [employer] Estrella Robles FNP-C FNP-Ckb Lewis, Lynsay, RN RN ll1 Maximiliano Osorio MD MD ec2
[2023-11-17 18:12] VITALS: BP 142/87; TEMP 98; O2SAT 100
== END ==
LOC: ER 15:37
DX: S09.90XA Unspecified injury of head, initial encounter (principal)
CPT/HCPCS: 70450; 99284

== ENCOUNTER 2024-02-25 23:51 | Emergency (ER) | payer SELFPAY ==
--- OUTSIDE RECORDS SUMMARY | 2024-02-25 23:54 | XMS REPORT | Continuity of Care Document ---
Author Name Unknown Address [address] [facility]. [address] [place] [address] [facility] thconnect Address [address] [facility] [place] [address] Care Team Providers Care Cotton Ball Bagger Name Role Phone PCP, PATIENT DOES NOT HAVE A Primary Care Physic tc Unavailable RADHIKA AGUIAR Attending Clinician Unavailable Radhika Morejon Attending Clinician [phone] Antoinette Mckeon Attending Clinician [phone] ANTOINETTE SANDERS Attending Clinician Unavailable BARBARA COSTA Attending Clinician Unavailable Florian Franco MD Attending Clinician [phone] RADHIKA AGUIAR Admitting Clinician Unavailable ANTOINETTE SANDERS Admitting Clinician Unavailable Payers Payer Name Policy Type Policy Number Effective Date Expirati on Date Source MEDICAID [place]IEN PENDING PENDING 2023 00:00:00 Problems Condition Name Condition Details Condition Category Status Onset Date Resolution Date Last Treatment Date Treating Clinician Comments Source Lump or mass in breast Lump or mass in breast Disease Active 03-12 00:00: 00 Overview: Formattin g of this note might be different from the original. Medical records from [facility] [place] 3. Impressio n: negative. Normal bilateral breast exam. No evidence of malignanc y. Subcutane ous nodules seen on 04/2012 US are no longer present. 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 [facility] anemia anemia Disease Active 05-21 00:00: 00 Overview: Formattin g of this note might be different from the original. 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, +RV culture, currently Disease Active 05-21 00:00: 00 [facility] Normal delivery Normal delivery Disease Active 05-20 00:00: 00 [facility] Allergies, Adverse Reactions, Alerts Allergy Name Allergy Type Status Severity Reaction(s) Onset Date Inactive Date Treating Clinician Comments Source NO KNOWN ALLERGIE S Drug Class Active [facility] Social History Social Habit Start Date Stop Date Quantity Comments Source [facility] function 2023-12-26 00:00:00 2023-12-26 00:00:00 [facility] Exposure to SARS-CoV-2 (event) 2022-08-06 00:00:00 2022-08-16 08:24:00 Not sure [facility] Sex Assigned At 1990 00:00:00 1990 00:00:00 [facility] Smoking Status Start Date Stop Date Source Tobacco smoking consumption unknown [facility] Medications Ordered Medication Name Filled Medication Name Start Date Stop Date Current Medication? Ordering Clinician Indication Dosage Frequency Signature (SIG) Comments Components Source doxycycline hyclate (Vibramycin ) capsule 100 mg 12-26 00:45: 00 12-26 00:47 :00 No 100mg 100 mg, Oral, ONCE, 1 dose, On Mon12/26/23 at 1945, CONCEPCIÓN
Re ason for Anti-Infec tive: Documented Infection< br>Documen li Infection Site: Skin / Soft Tissue
Duration of Therapy: Once (ED) [facility] methocarbam oL (ROBAXIN) tablet 500 mg 12-26 00:45: 00 12-26 00:19 :00 No 500mg 500 mg, Oral, ONCE NOW, 1 dose, On 4/23/24 at 1945, Routine [facility] ketorolac (TORADOL) injection 60 mg 12-26 00:45: 00 12-26 00:19 :00 No 60mg 60 mg, Intramuscu lar, ONCE, 1 dose, On Mon12/26/23 at 1945, CONCEPCIÓN [facility] ibuprofen 800 mg tablet 12-25 00:00: 00 Yes [id number] 800mg Take 1 tablet by mouth in the morning and 1 tablet at noon and 1 tablet in the evening. Take with meals. [facility] methocarbam oL 750 mg tablet 12-25 00:00: 00 Yes [id number] 750mg Take 1 tablet by mouth 4 (four) times daily. [facility] doxycycline hyclate 100 mg capsule 12-25 00:00: 00 Yes [id number] 100mg Take 1 capsule by mouth in the morning and 1 capsule in the evening. [facility] cyclobenzap rine (FLEXERIL) tablet 10 mg 2021-09 15:15: 00 08-16 14:44 :00 No 10mg 10 mg, Oral, ONCE, 1 dose, On Mon08/16/22 at 0915, Routine [facility] ketorolac (TORADOL) injection 15 mg 2021-09 14:45: 00 08-16 14:44 :00 No 15mg 15 mg, Slow IV Push, ONCE, 1 dose, On Mon08/16/22 at 0845, CONCEPCIÓN [facility] cyclobenzap rine 10 mg tablet 2021-09 00:00: 00 Yes [id number] 10mg Take 1 tablet by mouth in the morning and 1 tablet at noon and 1 tablet in the evening. [facility] ibuprofen 800 mg tablet 2021-09 00:00: 00 Yes [id number] 800mg Take 1 tablet by mouth every 8 (eight) hours as needed for Pain (scale 4-6). [facility] traMADOL 50 mg tablet 2016-09 00:00: 00 Yes 50mg Take 1 tablet by mouth every 6 (six) hours as needed (pain). [facility] proMETHazin e 25 mg tablet 2016-09 0 00:00: 00 Yes 25mg Take 1 tablet by mouth every 6 (six) hours as needed for Nausea and Vomiting (N/V). [facility] vitamin w/FA ( RX OR GENERIC EQUIVALENT) tablet 05-21 00:00: 00 Yes 1{tbl} Take 1 Tab by mouth daily. [facility] docusate calcium (SURFAK) 240 mg capsule 05-21 00:00: 00 Yes 240mg Take 1 Cap by mouth once daily as needed for Constipati on. [facility] ferrous sulfate 325 mg (65 mg iron) tablet 05-21 00:00: 00 Yes 325mg Take 1 Tab by mouth 2 (two) times daily. [facility] ibuprofen (MOTRIN) 600 mg tablet 05-21 00:00: 00 Yes 600mg Take 1 Tab by mouth every 6 (six) hours as needed for Pain. [facility] vitamin w/FA ( RX OR GENERIC EQUIVALENT) tablet 05-21 00:00: 00 Yes 1{tbl} Take 1 Tab by mouth daily. [facility] Vital Signs Vital Name Observation Time Observation Value Comments S ourloli Systolic blood pressure 2023-12-27 00:48:00 129 mm[Hg] [facility] Diastolic blood pressure 2023-12-27 00:48:00 64 mm[Hg] [facility] Heart rate 2023-12-27 00:48:00 91 /min [facility] Body temperature 2023-12-27 00:48:00 36.89 Sol [facility] Respiratory rate 2023-12-27 00:48:00 16 /min [facility] Oxygen saturation in Arterial blood by Pulse oximetry 2023-12-27 00:48:00 98 /min [facility] Body height 2023-12-26 23:18:00 157.5 cm [facility] Body weight 2023-12-26 23:18:00 77.111 kg [facility] BMI 2023-12-26 23:18:00 31.09 kg/m2 [facility] Systolic blood pressure 2022-08-16 15:30:00 129 mm[Hg] [facility] Diastolic blood pressure 2022-08-16 15:30:00 80 mm[Hg] [facility] Heart rate 2022-08-16 15:30:00 64 /min [facility] Respiratory rate 2022-08-16 15:30:00 16 /min [facility] Oxygen saturation in Arterial blood by Pulse oximetry 2022-08-16 15:30:00 99 /min [facility] Body temperature 2022-08-16 14:22:00 37.11 Sol [facility] Body weight 2022-08-16 14:22:00 81.647 kg [facility] BMI 2022-08-16 14:22:00 32.92 kg/m2 [facility] Procedures Procedure Date / Time Performed Performing Clinicia n Source POCT TEST 2023-12-27 00:21:00 Radhika Aguiar [facility] XR CHEST 1 VW 2022-08-16 14:46:17 Antoinette [facility] TROPONIN I 2022-08-16 14:35:00 Antoinette Sanders [facility] COMP. METABOLIC PANEL (28336) 2022-08-16 14:35:00 Antoinette Sanders [facility] CBC WITH DIFF 2022-08-16 14:35:00 Antoinette Sanders [facility] POCT TEST 2022-08-16 14:33:00 Antoinette Sanders [facility] CONSENT/REFUSAL FOR DIAGNOSIS AND TREATMENT 2022-08-16 14:18:39 Doctor Unassigned, [facility] Encounters Start Date/Time End Date/Time Encounter Type Admission Type Attending Clinicians Care Facility Care Department Encounter ID Source 2023-12-26 18:19:00 2023-12-26 19:54:00 Emergency X RADHIKA AGUIAR [facility] ERT [id number] [facility] 2023-12-26 18:19:00 2023-12-26 19:54:00 Emergency Radhika Aguiar [facility] [id number] 4.2.7.2.686 [id number] [facility] 2022-08-16 08:25:00 2022-08-16 10:01:00 Emergency Antoinette Sanders B [facility] [id number] 350.1.13.10 4.2.7.2.686 [id number] [facility] 2022-08-16 08:25:00 2022-08-16 10:01:00 Emergency X ANTOINETTE SANDERS [facility] ERT [id number] [facility] 2020-12-14 11:20:00 2020-12-14 11:20:00 Outpatient [facility] [id number] [facility] 2019-04-03 08:21:37 2019-04-03 10:14:00 Emergency Florian Franco [facility] [id number] 4.2.7.2.686 [id number] Results Test Description Test Time Test Comments Results Result Co mments Source [id number]:08:56* Test Item Value Reference Range Interpretation Comments TROPONIN I (test code = 6641205583) 0.001 ng/mL See_Comment [Automated message] The system which generated this result transmitted reference range: <=0.034. The reference range was not used to interpret this result as normal/abnormal. LIZZIE (test code = LIZZIE) Reference (Normal) [...] to patient's use of biotin. Lab Interpretation (test code = 34728-9) Normal [facility]. METABOLIC PANEL (69096)2022-08-16 14:57:38* Test Item Value Reference Range Interpretation Comme nts NA (test code = 0734521535) 138 mmol/L 135-145 K (test code = 3642042723) 3.9 mmol/L 3.5-5.0 CL (test code = 3288257375) 105 mmol/L 98-108 CO2 TOTAL (test code = 1247236425) 25 mmol/L 23-31 AGAP (test code = 9678436767) 2-16 BUN (test code = 1768039179) 8 mg/dL 7-23 GLUCOSE (test code = 4602241843) 97 mg/dL 70-110 CREATININE (test code = 5415418284) 0.50 mg/dL 0.50-1.04 TOTAL BILI (test code = 3123584270) 0.4 mg/dL 0.1-1.1 CALCIUM (test code = 4162660065) 8.8 mg/dL 8.6-10.6 T PROTEIN (test code = 6641620563) 7.2 g/dL 6.3-8.2 ALBUMIN (test code = 2297808629) 4.4 g/dL 3.5-5.0 ALK PHOS (test code = 1335775203) 66 U/L 34-122 ALTv (test code = 1742-6) 26 U/L 5-35 AST(SGOT) (test code = 0115267646) 22 U/L 13-40 eGFR (test code = 1084345701) mL/min/1.73m2 LIZZIE (test code = LIZZIE) Association [...] or urine or abnormalities in imaging tests). [facility] WITH [id number] 14:42:55* Test Item Value Reference Range Interpretation Comme nts WBC (test code = 6690-2) See_Comment [[employer]] The system which generated this result transmitted reference range: 4.30 - 11.10 10*3/?L. The reference range was not used to interpret this result as normal/abnormal. RBC (test code = 789-8) See_Comment [[employer]] The system which generated this result transmitted [...] g/dL 31.6-35.1 L RDW-SD (test code = 40797-3) 47.9 fL 39.0-49.9 RDW-CV (test code = 788-0) 14.9 % 12.0-15.5 PLT (test code = 777-3) See_Comment [Automated messa ge] The system which generated this result transmitted reference range: 166 - 358 10*3/?L. The reference range was not used to interpret this result as normal/abnormal. MPV (test code = 36019-3) 10.1 fL 9.5-12.9 NRBC/100 WBC (test code = 9901612693) See_Comment [Automated [employer] ssage] The system which generated this result transmitted reference range: 0.0 - 10.0 /100 WBCs. The reference range was not used to interpret this result as normal/abnormal. NRBC x10^3 (test code = 8353967382) See_Comment [Automated [employer]] The system which generated this result transmitted reference range: 10*3/?L. The reference range was not used to interpret this result as normal/abnormal. GRAN MAT (NEUT) % (test code = 770-8) 65.0 % IMM GRAN % (test code = 7813763250) 0.60 % LYMPH % (test code = 736-9) 27.8 % MONO % (test code = 5905-5) 5.3 % EOS % (test code = 713-8) 0.9 % BASO % (test code = 706-2) 0.4 % GRAN MAT x10^3(ANC) (test code = 7475668514) 5.31 10*3/uL 1.88-7.09 IMM GRAN x10^3 (test code = 1724196471) 0.05 10*3/uL 0.00-0.06 LYMPH x10^3 (test code = 731-0) 2.27 10*3/uL 1.32-3.29 MONO x10^3 (test code = 742-7) 0.43 10*3/uL 0.33-0.92 EOS x10^3 (test code = 711-2) 0.07 10*3/uL 0.03-0.39 BASO x10^3 (test code = 704-7) 0.03 10*3/uL 0.01-0.07 Lab Interpretation (test code = 76949-2) [id number]:00* Test Item Value Reference Range Interpretation Comme nts POCT PREG (test code = 1605) NEGATIVE On board controls acceptable with C Line (test code = 3574) PRESENT POCT PREG LOT # (test code = 3575) [id number] POCT PREG TEST DATE ( test code = 3576) 2023-12-03 Lab Interpretation (test cod e = 00468-3) Normal [facility] Notes Date/Time Note Provider Source 2023-12-26 19:53:44 [id number]:53:44F ormatting of this note might be different from the original.Pt given printed and verbal discharge instructions regarding rib pain, muscle strain, cellulitis of right lower extremity, encouraged hydration,Prescriptions provided to preferred pharmacyDiscussed ibuprofen and to take with food to avoid GI distress.Discussed antibiotic therapy and to take until all completed unless adverse reaction occurs - if occurs, discontinue medication and follow up with pcp/seek medical attentionPt verbalized understanding of instructions, pt awake alert oriented, resp reg unlabored, skin w/d, color appropriate for race, moves all ext well,pt encouraged to follow up with pcpAdvised to seek medical attention for new/prolonged/worsening of symptomsNo adverse reaction to meds given in ER noted upon dischargeAwake, alert oriented, resp reg unlabored, skin w/d, pt leaving amb with steady gait, in no apparent distress, 07270-0Ougvqccps department BgriAD5584-70-67Q51:54:32[facility] NoteTXT1.2.840.151349.1.13.104.2.7 .2.376731|[id number] for patient ejfq34193-6IdjnOUQGGKOHMGROxwacbqm d C-CDA narrative [id number]-Qaznu McInnis RNUTMBUT - [address] X[id number] 00PMNSWZBADCUGVWFHSMCJIB9603-41-02 T19:54:321.2.840.175482.1.72.3.15| 1.2.840.850878.1.13.104.2.7.2.7278 [id number] Clemencia Lujan RN [facility] 2023-12-26 18:17:26 6219-47-03I77:17:26F ormatting of this note might be different from the original.CC: patient presents to the ER with complaints of left sided rib pain that began two weeks ago, patient has been taking ibuprofen without relief.Patient also complains of a "rash" to the lower right side leg with associated burning.PMHx: see historyAwake, alert, oriented, resp reg unlabored, skin warm and dry, color appropriate for race, moves all ext without difficulty, amb without assistance.Appears in no distress. 66375-6Vcxfmtbag department Triage usfmDA0034-59-36X94:18:42[facility] Triage noteTXT1.2.840.710432.1.13.104.2.7 .2.665503|[id number] for patient pepw07597-0Kxatnvxwt department NoteLNNARRATIVEFormatted C-CDA narrative [id number] M Rivera RN[address] Em[id number] 03NSJRGPZRZMZOJOLMIZGDVX2725-59-40 T18:18:421.2.840.918756.1.72.3.15| 1.2.840.503157.1.13.104.2.7.2.7278 [id number] Alem Metz RN [facility]
[2024-02-26] MEDS ORDERED: ACETAMINOPHEN 500 MG TAB ONE (01:29)
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
[2024-02-26 14:49] VITALS: BP 138/84; TEMP 97.6; O2SAT 99
== END 2024-02-26 02:13 | disposition home or self-care (01) ==
LOC: ER 23:51
DX: S00.83XA Contusion of other part of head, initial encounter (principal)

== ENCOUNTER 2024-06-27 09:01 | Emergency (ER) | payer SELFPAY ==
--- OUTSIDE RECORDS SUMMARY | 2024-06-27 09:05 | XMS REPORT | Continuity of Care Document ---
Author Name Unknown Address [address] [place] [address] [facility] thconnect Address [address] [place] [address] Care Team Providers Care Saw Offbearer Name Role Phone PCP, PATIENT DOES NOT HAVE A Primary Care Physic tc Unavailable MUSHTAQ AGUIAR Attending Clinician Unavailable Mushtaq Morejon Attending Clinician [phone] Sean Mckeon Attending Clinician [phone] SEAN SANDERS Attending Clinician Unavailable BARBARA COSTA Attending Clinician Unavailable Florian Franco MD Attending Clinician [phone] MUSHTAQ AGUIAR Admitting Clinician Unavailable SEAN SANDERS Admitting Clinician Unavailable Payers Payer Name [...] from the original. Medical records from [facility]- 3. Impressio n: negative. Normal bilateral breast exam. No evidence of malignanc y. Subcutane ous nodules seen on 04/2012 US are no longer present. 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 [facility] anemia anemia Disease Active 05-21 00:00: 00 Overview: Formattin g of this note might be different from the original. 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, +RV culture, currently Disease Active 05-21 00:00: 00 [facility] Normal delivery Normal delivery Disease Active 05-20 00:00: 00 [facility] Allergies, Adverse Reactions, Alerts Allergy Name Allergy Type Status Severity Reaction(s) Onset Date Inactive Date Treating Clinician Comments Source NO KNOWN ALLERGIE S Drug Class Active [facility] Social History Social Habit Start Date Stop Date Quantity Comments Source [facility] of Social function 2023-12-26 00:00:00 2023-12-26 00:00:00 [facility] Exposure to SARS-CoV-2 (event) 2022-08-06 00:00:00 2022-08-16 08:24:00 Not sure [facility] Sex Assigned At 1990 00:00:00 1990 00:00:00 [facility] Smoking Status Start Date Stop Date Source Tobacco smoking consumption unknown [facility] Medications Ordered Medication Name Filled Medication Name [...] Soft Tissue
Duration of Therapy: Once (ED) [facility] methocarbam oL (ROBAXIN) tablet 500 mg 12-26 00:45: 00 12-26 00:19 :00 No 500mg 500 mg, Oral, ONCE NOW, 1 dose, On 4/23/24 at 1945, Routine [facility] ketorolac (TORADOL) injection 60 mg 12-26 00:45: 00 12-26 00:19 :00 No 60mg 60 mg, Intramuscu lar, ONCE, 1 dose, On Mon12/26/23 at 1945, CONCEPCIÓN [facility] ibuprofen 800 mg tablet 12-25 00:00: 00 Yes [id number] 800mg Take 1 tablet by mouth in the morning and 1 tablet at noon and 1 tablet in the evening. Take with meals. [facility] methocarbam oL 750 mg tablet 12-25 00:00: 00 Yes [id number] 750mg Take 1 tablet by mouth 4 (four) times daily. [facility] doxycycline hyclate 100 mg capsule 12-25 00:00: 00 Yes [id number] 100mg Take 1 capsule by mouth in the morning and 1 capsule in the evening. [facility] cyclobenzap rine (FLEXERIL) tablet 10 mg 2021-09 15:15: 00 08-16 14:44 :00 No 10mg 10 mg, Oral, ONCE, 1 dose, On Mon08/16/22 at 0915, Routine [facility] ketorolac (TORADOL) injection 15 mg 2021-09 14:45: 00 08-16 14:44 :00 No 15mg 15 mg, Slow IV Push, ONCE, 1 dose, On Mon08/16/22 at 0845, [facility] cyclobenzap rine 10 mg tablet 2021-09 00:00: 00 Yes [id number] 10mg Take 1 tablet by mouth in the morning and 1 tablet at noon and 1 tablet in the evening. [facility] ibuprofen 800 mg tablet 2021-09 00:00: 00 Yes [id number] 800mg Take 1 tablet by mouth every 8 (eight) hours as needed for Pain (scale 4-6). [facility] traMADOL 50 mg tablet 2016-09 00:00: 00 Yes 50mg Take 1 tablet by mouth every 6 (six) hours as needed (pain). [facility] proMETHazin e 25 mg tablet 2016-09 0 00:00: 00 Yes 25mg Take 1 tablet by mouth every 6 (six) hours as needed for Nausea and Vomiting (N/V). [facility] vitamin w/FA ( RX OR GENERIC EQUIVALENT) tablet 05-21 00:00: 00 Yes 1{tbl} Take 1 Tab by mouth daily. [facility] docusate calcium (SURFAK) 240 mg capsule 05-21 00:00: 00 Yes 240mg Take 1 Cap by mouth once daily as needed for Constipati on. [facility] ferrous sulfate 325 mg (65 mg iron) tablet 05-21 00:00: 00 Yes 325mg Take 1 Tab by mouth 2 (two) times daily. [facility] ibuprofen (MOTRIN) 600 mg tablet 05-21 00:00: 00 Yes 600mg Take 1 Tab by mouth every 6 (six) hours as needed for Pain. [facility] vitamin w/FA ( RX OR GENERIC EQUIVALENT) tablet 05-21 00:00: 00 Yes 1{tbl} Take 1 Tab by mouth daily. [facility] Vital Signs Vital Name Observation Time Observation Value Comments S ourloli Systolic blood pressure 2023-12-27 00:48:00 129 mm[Hg] [facility] Diastolic blood pressure 2023-12-27 00:48:00 64 mm[Hg] [facility] Heart rate 2023-12-27 00:48:00 91 /min [facility] Body temperature 2023-12-27 00:48:00 36.89 Sol [facility] Respiratory rate 2023-12-27 00:48:00 16 /min [facility] Oxygen saturation in Arterial blood by Pulse oximetry 2023-12-27 00:48:00 98 /min [facility] Body height 2023-12-26 23:18:00 157.5 cm [facility] Body weight 2023-12-26 23:18:00 77.111 kg [facility] BMI 2023-12-26 23:18:00 31.09 kg/m2 [facility] Systolic blood pressure 2022-08-16 15:30:00 129 mm[Hg] [facility] Diastolic blood pressure 2022-08-16 15:30:00 80 mm[Hg] [facility] Heart rate 2022-08-16 15:30:00 64 /min [facility] Respiratory rate 2022-08-16 15:30:00 16 /min [facility] Oxygen saturation in Arterial blood by Pulse oximetry 2022-08-16 15:30:00 99 /min [facility] Body temperature 2022-08-16 14:22:00 37.11 Sol [facility] Body weight 2022-08-16 14:22:00 81.647 kg [facility] BMI 2022-08-16 14:22:00 32.92 kg/m2 [facility] Procedures Procedure Date / Time Performed Performing Clinicia n Source POCT TEST 2023-12-27 00:21:00 Mushtaq Aguiar [facility] XR CHEST 1 VW 2022-08-16 14:46:17 Sean Sanders [facility] TROPONIN I 2022-08-16 14:35:00 Sean Sanders [facility] COMP. METABOLIC PANEL ([id number]) 2022-08-16 14:35:00 Sean Sanders [facility] CBC WITH DIFF 2022-08-16 14:35:00 Sean Sanders [facility] POCT TEST 2022-08-16 14:33:00 Sean Sanders [facility] CONSENT/REFUSAL FOR DIAGNOSIS AND TREATMENT 2022-08-16 14:18:39 Doctor Unassigned, [place] [facility] Encounters Start Date/Time End Date/Time Encounter Type Admission Type Attending Clinicians Care Facility Care Department Encounter ID Source 2023-12-26 18:19:00 2023-12-26 19:54:00 Emergency X MUSHTAQ AGUIAR [facility] ERT [id number] [facility] 2023-12-26 18:19:00 2023-12-26 19:54:00 Emergency Mushtaq Agiuar [facility] [id number] [facility] 2022-08-16 08:25:00 2022-08-16 10:01:00 Emergency Sean Sanders [facility] [id number] [facility] 2022-08-16 08:25:00 2022-08-16 10:01:00 Emergency X SEAN SANDERS [facility] ERT [id number] [facility] 2020-12-14 11:20:00 2020-12-14 11:20:00 Outpatient BARBARA MAE [facility] [id number] [facility] 2019-04-03 08:21:37 2019-04-03 10:14:00 Emergency Florian Fracno [facility] [id number] Results Test Description Test Time Test Comments Results Result Co mments Source [facility] [id number] 15:08:56* Test Item Value Reference Range Interpretation Comments TROPONIN I (test code = 2564976348) 0.001 ng/mL See_Comment [Automated message] The system [...] of biotin. Lab Interpretation (test code = 57706-1) Normal [facility]. METABOLIC PANEL ([id number])2022-08-16 14:57:38* Test Item Value Reference Range Interpretation Comme nts NA (test code = 8409827084) 138 mmol/L 135-145 K (test code = 4537148900) 3.9 mmol/L 3.5-5.0 CL (test code = 1257227161) 105 mmol/L 98-108 CO2 TOTAL (test code = 1237591212) 25 mmol/L 23-31 AGAP (test code = 4354850597) 2-16 BUN (test code = 5814662315) 8 mg/dL 7-23 GLUCOSE (test code = 5496455906) 97 mg/dL 70-110 CREATININE (test code = 0736741427) 0.50 mg/dL 0.50-1.04 TOTAL BILI (test code = 8671259081) 0.4 mg/dL 0.1-1.1 CALCIUM (test code = 8880507665) 8.8 mg/dL 8.6-10.6 T PROTEIN (test code = 7859425188) 7.2 g/dL 6.3-8.2 ALBUMIN (test code = 5079748882) 4.4 g/dL 3.5-5.0 ALK PHOS (test code = 3784843550) 66 U/L 34-122 ALTv (test code = 1742-6) 26 U/L 5-35 AST(SGOT) (test code = 5591037039) 22 U/L 13-40 eGFR (test code = 7715767764) mL/min/1.73m2 LIZZIE (test code = LIZZIE) Association [...] or urine or abnormalities in imaging tests). [facility] WITH [id number] 14:42:55* Test Item Value Reference Range Interpretation Comme nts WBC (test code = 6690-2) See_Comment [Cluey] The system which generated this result transmitted reference range: 4.30 - 11.10 10*3/?L. The reference range was not used to interpret this result as normal/abnormal. RBC (test code = 789-8) See_Comment [Cluey] The system which generated this result transmitted [...] g/dL 31.6-35.1 L RDW-SD (test code = 19579-2) 47.9 fL 39.0-49.9 RDW-CV (test code = 788-0) 14.9 % 12.0-15.5 PLT (test code = 777-3) See_Comment [Automated messa ge] The system which generated this result transmitted reference range: 166 - 358 10*3/?L. The reference range was not used to interpret this result as normal/abnormal. MPV (test code = 81786-2) 10.1 fL 9.5-12.9 NRBC/100 WBC (test code = 7667076287) See_Comment [Automated [employer]] The system which generated this result transmitted reference range: 0.0 - 10.0 /100 WBCs. The reference range was not used to interpret this result as normal/abnormal. NRBC x10^3 (test code = 1968732911) See_Comment [Automated [employer] ge] The system which generated this result transmitted reference range: 10*3/?L. The reference range was not used to interpret this result as normal/abnormal. GRAN MAT (NEUT) % (test code = 770-8) 65.0 % IMM GRAN % (test code = 2528445293) 0.60 % LYMPH % (test code = 736-9) 27.8 % MONO % (test code = 5905-5) 5.3 % EOS % (test code = 713-8) 0.9 % BASO % (test code = 706-2) 0.4 % GRAN MAT x10^3(ANC) (test code = 5631218163) 5.31 10*3/uL 1.88-7.09 IMM GRAN x10^3 (test code = 1245440642) 0.05 10*3/uL 0.00-0.06 LYMPH x10^3 (test code = 731-0) 2.27 10*3/uL 1.32-3.29 MONO x10^3 (test code = 742-7) 0.43 10*3/uL 0.33-0.92 EOS x10^3 (test code = 711-2) 0.07 10*3/uL 0.03-0.39 BASO x10^3 (test code = 704-7) 0.03 10*3/uL 0.01-0.07 Lab Interpretation (test code = 19701-9) Abnormal [facility] [id number] 14:33:00* Test Item Value Reference Range Interpretation Comme nts POCT PREG (test code = 1605) NEGATIVE On board controls acceptable with C Line (test code = 3574) PRESENT POCT PREG LOT # (test code = 3575) [id number] POCT PREG TEST DATE ( test code = 3576) 2023-12-03 Lab Interpretation (test cod e = 71424-6) Normal [facility] Notes Date/Time Note Provider Source 2023-12-26 19:53:44 Pt given printed and verbal discharge instructions regarding rib pain, muscle strain, cellulitis of right lower extremity, encouraged hydration, Prescriptions provided to preferred pharmacy Discussed ibuprofen and to take with food to avoid GI distress. Discussed antibiotic therapy and to take until all completed unless adverse reaction occurs - if occurs, discontinue medication and follow up with pcp/seek medical attention Pt verbalized understanding of instructions, pt awake alert oriented, resp reg unlabored, skin w/d, color appropriate for race, moves all ext well,pt encouraged to follow up with pcp Advised to seek medical attention for new/prolonged/worsening of symptoms No adverse reaction to meds given in ER noted upon discharge Awake, alert oriented, resp reg unlabored, skin w/d, pt leaving amb with steady gait, in no apparent distress, Clemencia Lujan RN [facility] 2023-12-26 18:17:26 CC: patient presents to the ER with complaints of left sided rib pain that began two weeks ago, patient has been taking ibuprofen without relief. Patient also complains of a "rash" to the lower right side leg with associated burning. PMHx: see history Awake, alert, oriented, resp reg unlabored, skin warm and dry, color appropriate for race, moves all ext without difficulty, amb without assistance. Appears in no distress. PI Metz RN [facility]
[2024-06-27] MEDS ORDERED: IBUPROFEN 200 MG TAB PO ONE (10:03)
--- NOTE | 2024-06-27 10:27 | RAD REPORT ---
EXAM: XR RIGHT HAND HISTORY: Pain. PAIN COMPARISON: None TECHNIQUE: Multiple projections of the right hand submitted. FINDINGS: Mildly angulated fracture is seen base of the proximal phalanx of the fifth finger. No disl ocation.. No significant degenerative changes are present. IMPRESSION: Mildly angulated fracture base of the proximal phalanx fifth finger.
--- NOTE | 2024-06-27 11:00 | ER ---
Nurse's Notes [facility] Name: Aruna Hsu Age: 34 yrs Sex: Female : 1990 Arrival Date: 06/27/2024 Time: 09:01 Bed 20 Private MD: Diagnosis: Displaced fracture of proximal phalanx of finger-RIGHT Presentation: 06/27 09:26 Chief complaint: Patient states: R hand pain that began this morning after dropping ss heavy item onto it. Bruising and swelling noted. Coronavirus screen: Client denies travel out of the [place] in the last 14 days. Ebola Screen: Patient denies exposure to infectious person. Patient denies travel to an Ebola-affected area in the 21 days before illness onset. Initial Sepsis Screen: Does the patient meet any 2 criteria? No. Patient's initial sepsis screen is negative. Does the patient have a suspected source of infection? No. Patient's initial sepsis screen is negative. Risk Assessment: Do you want to hurt yourself or someone else? Patient reports no desire to harm self or others. Onset of symptoms was June 27, 2024. 09:26 Method Of Arrival: Ambulatory ss 09:26 Acuity: JOE 4 ss Historical: - Allergies: 09:28 No Known Allergies; ss - Home Meds: 09:28 None [Active]; ss - PMHx: 09:28 None; ss - PSHx: 09:28 None; ss - Immunization history:: Client reports receiving the 2nd dose of the Covid vaccine. - Infectious Disease History:: Denies. - Social history:: Smoking status: Patient denies any tobacco usage or history of. Screenin:16 [facility] ED Fall Risk Assessment (Adult) History of falling in the last 3 months, kc6 including since admission No falls in past 3 months (0 pts) Confusion or Disorientation No (0 pts) Intoxicated or Sedated No (0 pts) Impaired Gait No (0 pts) Mobility Assist Device Used No (0 pt) Altered Elimination No (0 pt) Score/Fall Risk Level 0 - 2 = Low Risk Oriented to surroundings. Abuse screen: Denies threats or abuse. Denies injuries from another. Nutritional screening: No deficits noted. Tuberculosis screening: No symptoms or risk factors identified. Assessment: 10:15 General: Appears in no apparent distress. comfortable, well groomed, well developed, kc6 Behavior is calm, cooperative, appropriate for age. Pain: Complains of pain in right hand. Neuro: Level of Consciousness is awake, alert, obeys commands, Oriented to person, place, time, situation, Appropriate for age. Cardiovascular: Capillary refill < 3 seconds. Respiratory: Airway is patent Trachea midline Respiratory effort is even, unlabored, Respiratory pattern is regular, symmetrical. GI: No signs and/or symptoms were reported involving the gastrointestinal system. : No signs and/or symptoms were reported regarding the genitourinary system. EENT: No signs and/or symptoms were reported regarding the EENT system. Derm: Skin is intact, is healthy with good turgor, Skin is dry, Skin is normal, Skin temperature is warm Bruising that is dark purple, on right hand. Musculoskeletal: Range of motion: intact in all extremities, Swelling present in right hand. 12:34 Reassessment: Patient appears in no apparent distress at this time. Cardiovascular: ss Pulses are palpable in right radial artery. Musculoskeletal: Circulation, motion, and sensation intact. Vital Signs: 09:26 BP 128 / 90; Pulse 89; Resp 14; Temp 98.6(O); Pulse Ox 100% on R/A; Weight 77.11 kg; ss Height 5 ft. 2 in. ; Pain 9/10; 09:26 Body Mass Index 31.09 (77.11 kg, 157.48 cm) ss 09:26 Pain Scale: Adult ss ED Course: 09:02 Patient arrived in ED. mr 09:20 Moisés Altamirano MD is Attending Physician. [facility] 09:28 Triage completed. ss 09:28 Arm band placed on left wrist. ss 09:48 XRAY Hand RIGHT 3 View In Process Unspecified. EDMS 09:59 Angle Dumont, JEFRY is Primary Nurse. kc6 10:15 Patient maintains SpO2 saturation greater than 95% on room air. kc6 10:16 Patient has correct armband on for positive identification. Bed in low position. Call kc6 light in reach. Side rails up X 1. Pulse ox on. NIBP on. Door closed. Noise minimized. Lights dimmed. Pillow given. Ice pack to injury. 12:34 No provider procedures requiring assistance completed. Patient did not have IV access ss during this emergency room visit. Orthoglass splint: Ulnar gutter/Boxer splint applied on right forearm. Administered Medications: 10:06 Drug: Ibuprofen PO 600 mg PO once Route: PO; kc6 11:14 Follow up: Response: No adverse reaction kc6 Medication: 12:34 VIS not applicable for this client. ss Outcome: 11:00 Discharge ordered by . christin 12:34 Discharged to home ambulatory, ss 12:34 Condition: good 12:34 Discharge instructions given to patient, family, Instructed on discharge instructions, follow up and referral plans. medication usage, Demonstrated understanding of instructions, follow-up care, medications, Prescriptions given X 2, 12:45 Patient left the ED. ss Signatures: Dispatcher [employer] EDMS Moisés Altamirano MD MD cha Rivera, Mary, Reg Reg mr Maria Fernanda Michelle, RN RN Angle Whalen RN RN kc6
--- NOTE | 2024-06-27 11:00 | EDPHYS ---
Physician Documentation [facility] Name: Aruna Hsu Age: 34 yrs Sex: Female : 1990 Arrival Date: 06/27/2024 Time: 09:01 Bed 20 Private MD: HORTENCIA Physician Moisés Altamirano HPI: 06/27 10:53 This 34 yrs old Female presents to ER via Ambulatory with complaints of Hand christin Injury. 10:53 The patient or guardian reports decreased range of motion, deformity, pain. The christin complaints affect the right hand diffusely. Context: The problem was sustained at work. Onset: The symptoms/episode began/occurred 1 day(s) ago. Modifying factors: The symptoms are alleviated by elevation, holding still, the symptoms are aggravated by movement, dependent position. Associated signs and symptoms: The patient has no apparent associated signs or symptoms. Severity of symptoms: At their worst the symptoms were moderate, in the emergency department the symptoms are unchanged. The patient has not experienced similar symptoms in the past, but family has similar symptoms. Historical: - Allergies: : No Known Allergies; ss - Home Meds: : None [Active]; ss - PMHx: : None; ss - PSHx: : None; ss - Immunization history:: Client reports receiving the 2nd dose of the Covid vaccine. - Infectious Disease History:: Denies. - Social history:: Smoking status: Patient denies any tobacco usage or history of. ROS: 10:56 Constitutional: Negative for fever, chills, and weight loss, Eyes: Negative for injury, christin pain, redness, and discharge, ENT: Negative for injury, pain, and discharge, Neck: Negative for injury, pain, and swelling, Cardiovascular: Negative for chest pain, palpitations, and edema, Respiratory: Negative for shortness of breath, cough, wheezing, and pleuritic chest pain, Abdomen/GI: Negative for abdominal pain, nausea, vomiting, diarrhea, and constipation, Back: Negative for injury and pain, : Negative for injury, bleeding, discharge, and swelling, Skin: Negative for injury, rash, and discoloration, Neuro: Negative for headache, weakness, numbness, tingling, and seizure, Psych: Negative for depression, anxiety, suicide ideation, homicidal ideation, and hallucinations, Allergy/Immunology: Negative for hives, rash, and allergies, Endocrine: Negative for neck swelling, polydipsia, polyuria, polyphagia, and marked weight changes, Hematologic/Lymphatic: Negative for swollen nodes, abnormal bleeding, and unusual bruising, 10:56 MS/extremity: Positive for decreased range of motion, pain, swelling, tenderness, of the medial aspect of right hand, dorsal aspect of proximal phalanx of right little finger, dorsum of right hand, Palmar aspect of proximal phalanx of right little finger and outer aspect of right palm, Exam: 10:56 Constitutional: This is a well developed, well nourished patient who is awake, alert, christin and in no acute distress. Head/Face: Normocephalic, atraumatic. Eyes: Pupils equal round and reactive to light, extra-ocular motions intact. Lids and lashes normal. Conjunctiva and sclera are non-icteric and not injected. Cornea within normal limits. Periorbital areas with no swelling, redness, or edema. ENT: Nares patent. No nasal discharge, no septal abnormalities noted. Tympanic membranes are normal and external auditory canals are clear. Oropharynx with no redness, swelling, or masses, exudates, or evidence of obstruction, uvula midline. Mucous membranes moist. Neck: Trachea midline, no thyromegaly or masses palpated, and no cervical lymphadenopathy. Supple, full range of motion without nuchal rigidity, or vertebral point tenderness. No Meningismus. Chest/axilla: Normal chest wall appearance and motion. Nontender with no deformity. No lesions are appreciated. Cardiovascular: Regular rate and rhythm with a normal S1 and S2. No gallops, murmurs, or rubs. Normal PMI, no JVD. No pulse deficits. Respiratory: Lungs have equal breath sounds bilaterally, clear to auscultation and percussion. No rales, rhonchi or wheezes noted. No increased work of breathing, no retractions or nasal flaring. Abdomen/GI: Soft, non-tender, with normal bowel sounds. No distension or tympany. No guarding or rebound. No evidence of tenderness throughout. Back: No spinal tenderness. No costovertebral tenderness. Full range of motion. Skin: Warm, dry with normal turgor. Normal color with no rashes, no lesions, and no evidence of cellulitis. Neuro: Awake and alert, GCS 15, oriented to person, place, time, and situation. Cranial nerves II-XII grossly intact. Motor strength 5/5 in all extremities. Sensory grossly intact. Cerebellar exam normal. Normal gait. Psych: Awake, alert, with orientation to person, place and time. Behavior, mood, and affect are within normal limits. 10:56 Musculoskeletal/extremity: Extremities: grossly normal except: decreased ROM, pain, swelling, tenderness, ROM: limited active range of motion, limited passive range of motion, limited active range of motion due to pain, limited passive range of motion due to pain, in the medial aspect of right hand, medial aspect of right fingers, dorsal aspect of proximal phalanx of right little finger, dorsum of right hand, Palmar aspect of proximal phalanx of right little finger and outer aspect of right palm, Vital Signs: 09:26 BP 128 / 90; Pulse 89; Resp 14; Temp 98.6(O); Pulse Ox 100% on R/A; Weight 77.11 kg; ss Height 5 ft. 2 in. ; Pain 910; 09:26 Body Mass Index 31.09 (77.11 kg, 157.48 cm) 09:26 Pain Scale: Adult ss MDM: 09:21 Medical Screening Exam initiated christin 10:57 Differential diagnosis: closed fracture, contusion. Data reviewed: vital signs, nurses [facility] notes, radiologic studies. Consideration of Admission/Observation Escalation of care including admission/observation considered. I considered the following discharge prescriptions or medication management in the emergency department Medications were administered in the Emergency Department. See MAR. Independent interpretation of the following test(s) in the Emergency Department X-Ray: My interpretation is RIGHT 5TH FINGER. 06/27 09:26 Order name: XRAY Hand RIGHT 3 View; Complete Time: 10:48 ss 06/27 09:34 Order name: Ice pack; Complete Time: 09:59 christin 06/27 10:49 Order name: Ulnar Gutter splint; Complete Time: 12:28 christin Administered Medications: 10:06 Drug: Ibuprofen PO 600 mg PO once Route: PO; kc6 11:14 Follow up: Response: No adverse reaction kc6 Disposition Summary: 06/27/24 11:00 Discharge Ordered Notes: Location: Home christin Problem: new christin Symptoms: have improved christin Condition: Stable christin Diagnosis - Displaced fracture of proximal phalanx of finger - RIGHT christin Followup: [facility] - With: Private Physician - When: 2 - 3 days - Reason: Recheck today's complaints, Continuance of care, Re-evaluation by your physician Discharge Instructions: - Discharge Summary Sheet christin - Finger Fracture, Adult christin - Finger Fracture, Adult, [facility] Forms: - Medication Reconciliation Form christin - Antibiotic Education christin - Prescription Opioid Use christin - Patient Portal Instructions [facility] - Leadership Thank You Letter [facility] Prescriptions: - acetaminophen-codeine 300-30 mg Oral tablet - take 2 tablet ORAL route every 6 hours; 20 tablet; Refills: 0, Product [facility] Selection Permitted - Ibuprofen 600 mg Oral Tablet - take 1 tablet ORAL route every 6 hours As needed take with food; 30 tablet; [facility] Refills: 0, Product Selection Permitted Signatures: Dispatcher [employer] Moisés Suarez MD MD cha Blanchard, Shelby, RN RN ss Angle Dumont RN RN [email or web address]
[2024-06-27 16:37] VITALS: BP 128/90; TEMP 98.6; O2SAT 100
== END 2024-06-27 12:45 | disposition home or self-care (01) ==
LOC: ER 09:01
PROC: 2W3JX1Z Immobilization of Right Finger using Splint (ICD-10-PCS; principal; 2024-06-27)
DX: S62.616A Displaced fracture of proximal phalanx of right little finger, initial encounter for closed fracture (principal)
CPT/HCPCS: 99284